=== PATIENT | female | born 1970 | race Caucasian/White ===

== ENCOUNTER 2017-03-03 11:27 | Outpatient (POV) | payer OTHER, SELFPAY | END 2017-03-03 15:20 | disposition home or self-care (01) | PROVIDERS: Family Provider Physician Assistant; PCP Physician Assistant; Visit Provider Podiatrist | DX: S93.401A Sprain of unspecified ligament of right ankle, initial encounter (principal) | CPT/HCPCS: 99203 ==

== ENCOUNTER 2017-06-19 13:23 | Emergency (ER) | payer OTHER, SELFPAY ==
[2017-06-19 13:42] VITALS: BP 136/96; PULSE 102; RESP 18; TEMP 36.5; O2SAT 100; BMI 31.8
--- NOTE | 2017-06-19 13:53 | XR_ITS ---
XR femur LT 2V COMPARISON: None HISTORY: .Dog bite posterior thigh TECHNIQUE: AP lateral and oblique views FINDINGS: The femoral head and neck appear intact. The femoral shaft is intact and the supracondylar femur appears normal. The soft tissues are normal with no foreign body seen. IMPRESSION: Negative left femur
--- NOTE | 2017-06-19 13:54 | HMH.EDUTC ---
[facility] [place] Disposition Clinical Impression: Dog bite of left thigh Qualifiers: Encounter type: initial encounter Qualified Code(s): S71.152A - Open bite, left thigh, initial encounter; W54.0XXA - Bitten by dog, initial encounter Disposition: Home, Self-Care Condition on Discharge: Good Instructions: DI for Dog Bite Additional Instructions: * Start antibiotic(s) immediately and be sure to take as ordered for the FULL length of time although you should start to see improvement over the next 24-48 hours. augmentin can cause GI side effects. Probiotics help prevent these symptoms. Once home, take a shower and allow water to run over wound. This only cleans it more then the irrigation we used here. Mild soap and water. DO NOT close or cover wound as this increases risk for infection. Monitor closely. Follow up immediately for new or worsening symptoms like signs of infection we discussed (swelling, redness, drainage, increasing pain) Wound follow up in 48 hours. Prescriptions: Amoxicillin/Potassium Clav [Augmentin 875-125 Tablet] 1 tab PO Q12H #14 tab Referrals: Daysi Michael PA [Primary Care Provider] - (Immediately to [facility] this weekend for new or worsening symptoms. Otherwise, return to [facility] on Thursday for wound care follow up.) Time of Disposition: 15:00 Medical Decision Making - Jesus Inquiry Pt receiving controlled substance: No Vital Signs: 06/19/17 13:42 06/19/17 15:21 Temperature 97.7 F 98.3 F Temperature Source Temporal Artery Scan Pulse Rate 83 Pulse Rate [Right Radial] 102 H Respiratory Rate 18 18 Blood Pressure 135/79 Blood Pressure [Right Arm] 136/96 Blood Pressure Mean [Right Arm] 109 02 Sat by Pulse Oximetry 100 Oxygen Delivery Method Room Air Room Air [facility] [place] HPI - General Stated complaint: AO [id number] dog bite left leg Time Seen by Provider: 06/19/17 13:45 Mode of Arrival: Family Vehicle Source of Information: Patient Limitations: No Limitations Description of Symptoms (Recalled from Triage Doc. by RN): PT STATES SHE WAS BITTEN BY A DOG THIS AFTERNOON ON HER LEFT POSTERIOR THIGH. HEENT Symptoms (Recalled from RN notes): No Resp Symptoms (Recalled from RN notes): No Skin Symptoms (Recalled from RN notes): Yes (DOG BITE ON LEFT POSTERIOR THIGH) MS Symptoms (Recalled from RN notes): No Functional Status (Recalled from RN notes): NA - History of Present Illness Provider Complaint: Here w/ a friend due to a dog bite. Reports she was bitten around 1-1.5 hours ago by a neighbor's large dog. Last tetanus 2 year ago. pain and bleeding left posterior thigh. Ambulating but painful. Hasn't taken or tried anything since occurred. - Related Data Home Medications Medication Instructions Recorded Confirmed aripiprazole 10 mg tablet 10 mg PO QDAY tab 04/15/17 atorvastatin 20 mg tablet 20 mg PO QDAY 04/15/17 buspirone 10 mg tablet 10 mg PO TID tab 04/15/17 diclofenac sodium 75 mg 75 mg PO BID 04/15/17 tablet,delayed release docusate sodium 100 mg capsule 100 mg PO QDAY 04/15/17 doxepin 75 mg capsule 75 mg PO QHS 04/15/17 fluticasone 50 mcg/actuation nasal 50 mcg INTRANASAL QDAY PRN 04/15/17 spray,suspension hydrochlorothiazide 12.5 mg capsule 12.5 mg PO QDAY 04/15/17 linaclotide 290 mcg capsule 290 mcg PO QDAY 04/15/17 loratadine 10 mg tablet 10 mg PO QDAY 04/15/17 mometasone-formoterol HFA 100 2 puff INHALATION BID 04/15/17 mcg-5 mcg/actuation aerosol inhaler mometasone-formoterol HFA 100 2 puff INHALATION BID 04/15/17 mcg-5 mcg/actuation aerosol inhaler montelukast 10 mg tablet 10 mg PO QHS 04/15/17 sucralfate 1 gram tablet 1 g PO BID tab 04/15/17 vortioxetine 20 mg tablet 20 mg PO QDAY 04/15/17 Previous Rx's Medication Instructions Recorded lansoprazole 30 mg capsule,delayed 30 mg PO QDAY 90 Days #90 cap 05/21/17 release hydralazine 10 mg tablet 10 mg PO BID #60 tab 05/25/17 propranolol ER 60 mg capsule,24 60 mg PO Q24H 90 Days #90 cap 06/15/17 hr
--- NOTE | 2017-06-19 14:22 | ED_ITS ---
[facility] [place] Disposition Clinical Impression: Dog bite of left thigh Qualifiers: Encounter type: initial encounter Qualified Code(s): S71.152A - Open bite, left thigh, initial encounter; W54.0XXA - Bitten by dog, initial encounter Disposition: Home, Self-Care Condition on Discharge: Good Instructions: DI for Dog Bite Additional Instructions: * Start antibiotic(s) immediately and be sure to take as ordered for the FULL length of time although you should start to see improvement over the next 24-48 hours. augmentin can cause GI side effects. Probiotics help prevent these symptoms. Once home, take a shower and allow water to run over wound. This only cleans it more then the irrigation we used here. Mild soap and water. DO NOT close or cover wound as this increases risk for infection. Monitor closely. Follow up immediately for new or worsening symptoms like signs of infection we discussed (swelling, redness, drainage, increasing pain) Wound follow up in 48 hours. Prescriptions: Amoxicillin/Potassium Clav [Augmentin 875-125 Tablet] 1 tab PO Q12H #14 tab Referrals: Daysi Michael PA [Primary Care Provider] - (Immediately to [facility] this weekend for new or worsening symptoms. Otherwise, return to [facility] on Thursday for wound care follow up.) Time of Disposition: 15:00 Medical Decision Making - Jesus Inquiry Pt receiving controlled substance: No Vital Signs: 06/19/17 13:42 06/19/17 15:21 Temperature 97.7 F 98.3 F Temperature Source Temporal Artery Scan Pulse Rate 83 Pulse Rate [Right Radial] 102 H Respiratory Rate 18 18 Blood Pressure 135/79 Blood Pressure [Right Arm] 136/96 Blood Pressure Mean [Right Arm] 109 02 Sat by Pulse Oximetry 100 Oxygen Delivery Method Room Air Room Air [facility] [place] HPI - General Stated complaint: AO [id number] dog bite left leg Time Seen by Provider: 06/19/17 13:45 Mode of Arrival: Family Vehicle Source of Information: Patient Limitations: No Limitations Description of Symptoms (Recalled from Triage Doc. by RN): PT STATES SHE WAS BITTEN BY A DOG THIS AFTERNOON ON HER LEFT POSTERIOR THIGH. HEENT Symptoms (Recalled from RN notes): No Resp Symptoms (Recalled from RN notes): No Skin Symptoms (Recalled from RN notes): Yes (DOG BITE ON LEFT POSTERIOR THIGH) MS Symptoms (Recalled from RN notes): No Functional Status (Recalled from RN notes): NA - History of Present Illness Provider Complaint: Here w/ a friend due to a dog bite. Reports she was bitten around 1-1.5 hours ago by a neighbor's large dog. Last tetanus 2 year ago. pain and bleeding left posterior thigh. Ambulating but painful. Hasn't taken or tried anything since occurred. - Related Data Home Medications Medication Instructions Recorded Confirmed aripiprazole 10 mg tablet 10 mg PO QDAY tab 04/15/17 atorvastatin 20 mg tablet 20 mg PO QDAY 04/15/17 buspirone 10 mg tablet 10 mg PO TID tab 04/15/17 diclofenac sodium 75 mg 75 mg PO BID 04/15/17 tablet,delayed release docusate sodium 100 mg capsule 100 mg PO QDAY 04/15/17 doxepin 75 mg capsule 75 mg PO QHS 04/15/17 fluticasone 50 mcg/actuation nasal 50 mcg INTRANASAL QDAY PRN 04/15/17 spray,suspension hydrochlorothiazide 12.5 mg capsule 12.5 mg PO QDAY 04/15/17 linaclotide 290 mcg capsule 290 mcg PO QDAY 04/15/17 loratadine 10 mg tablet 10 mg PO QDAY 04/15/17 mometasone-formoterol HFA 100 2 puff INHALATION BID 04/15/17
[2017-06-19 15:21] VITALS: BP 135/79; PULSE 83; RESP 18; TEMP 36.8; O2SAT 99
== END 2017-06-19 15:22 | disposition home or self-care (01) ==
PROVIDERS: Emergency Provider Nurse Practitioner Family; Family Provider Physician Assistant; PCP Physician Assistant
DX: S71.152A Open bite, left thigh, initial encounter (principal); W54.0XXA Bitten by dog, initial encounter; J44.9 Chronic obstructive pulmonary disease, unspecified; K21.9 Gastro-esophageal reflux disease without esophagitis; E78.5 Hyperlipidemia, unspecified; I10 Essential (primary) hypertension; F25.9 Schizoaffective disorder, unspecified; Z88.6 Allergy status to analgesic agent; Z79.899 Other long term (current) drug therapy
CPT/HCPCS: 73552; 99201

== ENCOUNTER → 2017-10-15 10:25 | Outpatient (CLI) | payer OTHER, SELFPAY ==
--- NOTE | 2017-10-15 10:39 | XR_ITS ---
XR wrist RT min 3V HISTORY ITS.REASON: GANGLION CYST, palpable nodule, soft tissue swelling, pain ORDERING PHYSICIAN: Gaurang Stevenson MD PATIENT AGE: 46 years Comparison: None FINDINGS: No fracture or dislocation. No lytic or blastic change. There is normal mineralization.. The joint spaces are well-preserved. No significant degenerative/arthritic changes. No erosive changes evident.. IMPRESSION: Negative wrist
== END ==
PROVIDERS: PCP Physician Assistant; Visit Provider Orthopaedic Surgery
DX: M67.40 Ganglion, unspecified site (principal)
CPT/HCPCS: 73110

== ENCOUNTER → 2017-10-19 13:50 | Outpatient (CLI) | payer OTHER, SELFPAY ==
--- NOTE | 2017-10-19 13:52 | XR_ITS ---
XR foot wt bearing LT 3V HISTORY: ITS.REASON: pain ORDERING PHYSICIAN: Norma Chapman DPM PATIENT AGE: 46 years COMPARISON: None FINDINGS: No fracture or dislocation. No lytic or blastic change. There is normal mineralization.. The joint spaces are well-preserved. No significant degenerative/arthritic changes. No erosive changes evident. The plantar arch is normal. There is no soft tissue swelling. IMPRESSION: Negative, no acute finding
--- NOTE | 2017-10-19 13:52 | XR_ITS ---
XR ankle wt bearing LT min 3V HISTORY: ITS.REASON: pain ORDERING PHYSICIAN: Norma Chapman DPM PATIENT AGE: 46 years Comparison: None FINDINGS: No fracture or dislocation. No lytic or blastic change. There is normal mineralization.. The joint spaces are well-preserved. No significant degenerative/arthritic changes. No erosive changes evident. The ankle mortise appears normal. There is no significant soft tissue swelling. IMPRESSION: Negative ankle, no acute finding
== END ==
PROVIDERS: Visit Provider Podiatrist
DX: M25.571 Pain in right ankle and joints of right foot (principal); M25.572 Pain in left ankle and joints of left foot
CPT/HCPCS: 73610; 73630

== ENCOUNTER → 2019-10-20 09:58 | Outpatient (CLI) | payer OTHER, SELFPAY ==
--- NOTE | 2019-10-20 10:04 | XR_ITS ---
PROCEDURE: XR ANKLE WT BEARING RT MIN 3V CLINICAL INDICATION: pain COMPARISON: ANKR3 ANKLE-RT-3 VIEWS from 12/20/2016 FINDINGS: There are postsurgical changes. There is a small obliquely oriented screw through the talar dome laterally. The proximal aspect of the screw appears to the extend just beyond the superior surface of the talar dome similar to the previous exam. A screw is present in the central aspect of the talus and also within the calcaneus as before. The joint spaces are well-preserved. No significant degenerative/arthritic changes. No erosive changes evident. Other findings:None. IMPRESSION: Postsurgical change. The screw within the superior aspect of the talus laterally is not quite flush with the cortex of the talar dome. No change with no acute finding. Dictated by: Cabrera Zeng MD 10/20/2019 13:37 Electronically signed by Cabrera Zeng MD in [place] 10/20/2019 13:37
--- NOTE | 2019-10-20 10:04 | XR_ITS ---
PROCEDURE: XR ANKLE WT BEARING LT MIN 3V CLINICAL INDICATION: pain Medial pain COMPARISON: ANKR3 ANKLE-RT-3 VIEWS from 12/20/2016 FINDINGS: No fracture or dislocation. No lytic or blastic change. There is normal mineralization. The joint spaces are well-preserved. No significant degenerative/arthritic changes. No erosive changes evident. Other findings:None. IMPRESSION: No acute findings. Dictated by: Cabrera Zeng MD 10/20/2019 13:20 Electronically signed by Cabrera Zeng MD in [place] 10/20/2019 13:20
== END ==
PROVIDERS: PCP Physician Assistant; Visit Provider Podiatrist
DX: M25.572 Pain in left ankle and joints of left foot (principal); S93.492A Sprain of other ligament of left ankle, initial encounter
CPT/HCPCS: 73610

== ENCOUNTER → 2019-11-17 10:36 | Outpatient (CLI) | payer OTHER, SELFPAY ==
--- NOTE | 2019-11-17 10:36 | MR_ITS ---
PROCEDURE: MR ANKLE LT WO/W CON CLINICAL INDICATION: Left ankle sprain, tear ATFL, deltoid, CF ligament PT twisted ankle [id number] ago. Entire ankle pain but worse on the medial side. Bruising on medial and lateral aspects. HX breast cancer. LT ankle instability. COMPARISON: CR XR ANKLE WT BEARING LT MIN 3V from 10/20/2019 TECHNIQUE: Routine multiplanar multi echo sequences are performed without gadolinium enhancement. FINDINGS: The tibiofibular ligaments, ATFL, PT FL, and deltoid ligaments appear intact. Posterior tibialis, flexor digitorum and flexor hallucis longus tendons and peroneal tendons are unremarkable. Achilles tendon has an unremarkable appearance. No abnormal bone marrow signal intensity evident. There is a small amount fluid in the ankle joint and at the posterior talar region.. There is also a small amount of soft tissue edema along the anterior lateral aspect of the ankle along the talus IMPRESSION: Small amount fluid along the posterior aspect of the talus and mild soft tissue edema along the anterior lateral talar region. The ATFL however does appear intact. Otherwise negative MRI the left ankle No evidence of ligament or tendinous tears Dictated by: Cabrera Zeng MD 11/19/2019 10:10 Cabrera Zeng MD in [place] 11/19/2019 10:10
== END ==
PROVIDERS: PCP Physician Assistant; Visit Provider Podiatrist
DX: S93.402A Sprain of unspecified ligament of left ankle, initial encounter (principal)
CPT/HCPCS: 73723; A9576

== ENCOUNTER 2020-02-17 15:00 | Outpatient (RCR) | payer OTHER, SELFPAY ==
--- NOTE | 2019-11-30 15:31 | HMH.PTOPEV ---
PT Outpatient Evaluation Rehab PT Outpatient Evaluation Start: 11/30/19 14:58 Freq: Status: Active Protocol: Document 11/30/19 15:12 CHRIS (Rec: 11/30/19 15:31 JESRUMA [id number]) Electronically Signed By Star Glasgow, PT 11/30/19 15:12 Outpatient Therapy Subjective History Subjective History Patient is a 49 year old female presenting to outpatient PT with reports of L foot/ankle pain S/P L ankle sprain approx 1.5 months ago. Pt reports that she was playing soccer and stepped in a hole resulting in injury. Most recent MRI indicates all ligament and tendons appear intact. Comorbidities include hx of breast cancer with mastectomy, HL, R ankle fracture with ORIF, cholecystectomy and appendectomy. Chief Complaint Pain,Stiff,Swelling Symptom Type Ache,Throb,Sharp,Shooting Symptoms Relieved By Rest/Positioning,Heat,OTC Meds Symptoms Aggravated By Standing,Physical Activity, Walking Prior Functional Limitations None Current Functional Limitations Housework,Standing,Squatting, Recreation Activity,Walking, Stairs,Balance Symptom Description Constant but Variable Level of pain today (0-10) 8 Pain scale - at its best (0-10) 2 Pain scale - at its worst (0-10) 9 Ankle/Foot Eval Gait Observation General Gait Pattern Observation Decrease Weight Bear (L) Palpation Tenderness left Ankle/Foot Palpation Findings Tenderness Ankle/Foot Palpation Overall Comment ATFL 3/4; deltoid ligaments 2/ 4 ROM Ankle/Foot Dorsiflexion w/Knee Extended -10 Active Range Motion (degrees) Ankle/Foot Dorsiflexion w/Knee Extended -5 Passive Range (degrees) Ankle/Foot Plantar Flexion Active Range 48 of Motion (degrees) Ankle/Foot Plantar Flexion Passive Range 58 of Motion (degrees) Ankle/Foot Eversion Active Range of 9 Motion (degrees) Ankle/Foot Eversion Passive Range of 15 Motion (degrees) Ankle/Foot Inversion Active Range of 22 Motion (degrees) Ankle/Foot Inversion Passive Range of 30 Motion (degrees) Ankle/Foot ROM Limitations Soft Tissue Tightness Great Toe ROM Reason Not Measured Within Functional Limits Accessory Movements Ankle Accessory Movements that Elicit Talus Dorsal [place],Talus
--- NOTE | 2020-01-11 16:14 | HMH.RHREAS ---
Rehab Reassessment Rehab OP Re-assessment Start: 01/11/20 16:08 Freq: Status: Active Protocol: Document 01/11/20 16:08 CHRIS (Rec: 01/11/20 16:14 CHRIS [id number]) Electronically Signed By Star Glasgow, PT 01/11/20 16:08 Rehab Re-assessment Subjective Subjective Patient reports 50% improvement since start of care. Objective Objective Notes AROM: DF 6; PF 58; INV 26; 16 MMT: PF/DF WNL; INV/EV 4+/5 SLS 3/10 sec TTP 3/4 ATFL Special tests negative Assessment Progress Assessment Progressing as Expected Assessment Notes Patient has been seen for 1 treatment visit since initial evaluation. Patient experienced another mild sprain which kept her from coming to PT. Patient reports compliance with HEP. No significat swelling to report. She has transitioned from boot to brace without any problems. She continues to have difficulty with all standing and ambulatory activities resulting in functional limitations with all household, recreational and work related tasks. Patient goals met STG 2 Goals Not Met STG 1, LTG's Revised Goals NA Plan Plan Continue with POC Frequency of Therapy 2x/week Duration of therapy 4 weeks Time and Billing Re-Eval Time 15 Re-Eval Billing Units 1 PHYSICIAN CERTIFICATION: I certify the specified therapy services for Tiana Boone are required, authorized, and reviewed every 30 days.
== END 2020-02-17 15:05 | disposition home or self-care (01) ==
LOC: PT 15:00
PROVIDERS: PCP Physician Assistant; Visit Provider Podiatrist
DX: S93.422A Sprain of deltoid ligament of left ankle, initial encounter (principal); M76.72 Peroneal tendinitis, left leg
CPT/HCPCS: 97010; 97014; 97110; 97163; 97164; G0283

== ENCOUNTER → 2020-02-17 15:01 | Outpatient (CLI) | payer OTHER, SELFPAY ==
--- NOTE | 2020-02-17 15:08 | XR_ITS ---
PROCEDURE: XR HAND LT MIN 3V CLINICAL INDICATION: Left hand pain COMPARISON: CR HANDR3 HAND-RT 3 VIEWS from 02/26/2016 CR HANDR3 HAND-RT 3 VIEWS from 02/28/2016 CR HANDR3 HAND-RT 3 VIEWS from 01/09/2017 FINDINGS: No fracture or dislocation. No lytic or blastic change. There is normal mineralization. The joint spaces are well-preserved. No significant degenerative/arthritic changes. No erosive changes evident. Other findings:None. IMPRESSION: No acute findings. Dictated by: Cabrera Zeng MD 02/17/2020 15:34 Cabrera Zeng MD in [place] 02/17/2020 15:34
--- NOTE | 2020-02-17 15:08 | XR_ITS ---
PROCEDURE: XR WRIST LT MIN 3V CLINICAL INDICATION: left wrist pain COMPARISON: CR WRISTCMRT XR wrist RT min 3V from 10/15/2017 FINDINGS: No fracture or dislocation. No lytic or blastic change. There is normal mineralization. The joint spaces are well-preserved. No significant degenerative/arthritic changes. No erosive changes evident. Other findings:None. IMPRESSION: No acute findings. Dictated by: Cabrera Zeng MD 02/17/2020 15:33 Cabrera Zeng MD in [place] 02/17/2020 15:33
== END ==
PROVIDERS: PCP Physician Assistant; Visit Provider Physician Assistant
DX: M79.642 Pain in left hand (principal); M25.532 Pain in left wrist
CPT/HCPCS: 73110; 73130

== ENCOUNTER → 2021-01-31 12:03 | Outpatient (CLI) | payer OTHER, SELFPAY ==
--- NOTE | 2021-01-31 12:07 | XR_ITS ---
PROCEDURE INFORMATION: Exam: XR Left Elbow Exam date and time: 01/31/2021 12:07 PM Age: 50 years old Clinical indication: Injury or trauma; Fall; Swelling (edema); Elbow; Left; Injury date: 01/27; Additional info: Fall 01/27 TECHNIQUE: Imaging protocol: XR Left elbow. Views: 3 or more views. COMPARISON: CR XR WRIST LT MIN 3V 02/17/2020 3:09 PM FINDINGS: Bones/joints: Normal. Soft tissues: Normal. IMPRESSION: No acute findings.
--- NOTE | 2021-01-31 12:07 | XR_ITS ---
PROCEDURE INFORMATION: Exam: XR Left Wrist Exam date and time: 01/31/2021 12:07 PM Age: 50 years old Clinical indication: Pain; Wrist; Left; Additional info: Fall 01/27 TECHNIQUE: Imaging protocol: XR Left wrist. Views: 3 or more views. COMPARISON: CR XR WRIST LT MIN 3V 02/17/2020 3:09 PM FINDINGS: Bones/joints: Normal. Soft tissues: Normal. IMPRESSION: No acute findings.
== END ==
PROVIDERS: PCP Physician Assistant; Visit Provider Physician Assistant
DX: M25.522 Pain in left elbow (principal); W19.XXXA Unspecified fall, initial encounter; M25.532 Pain in left wrist
CPT/HCPCS: 73080; 73110

== ENCOUNTER 2021-01-31 12:29 | Outpatient (RCR) | payer OTHER, SELFPAY | END 2021-01-31 13:47 | disposition home or self-care (01) | LOC: OT 12:29 | PROVIDERS: Visit Provider Physician Assistant | DX: M25.532 Pain in left wrist (principal); M25.522 Pain in left elbow; S59.902A Unspecified injury of left elbow, initial encounter | CPT/HCPCS: 97763 ==

== ENCOUNTER → 2021-06-13 13:30 | Outpatient (CLI) | payer OTHER, SELFPAY ==
[2021-06-13 17:41] LABS: Basophils # 0.1 K/mm3 (0-0.2); Basophils % 0.5 % (0.1-2.0); Eosinophils # 0.1 K/mm3 (0.0-0.4); Eosinophils % 0.8 % (0.1-12.0); Hematocrit 40.3 % (37.0-47.0); Hemoglobin 12.9 g/dL (12.2-16.2); Lymphocytes # 1.8 K/mm3 (0.7-4.5); Lymphocytes % 16.8 % (10-50); Mean Corpuscular Hemoglobin 29.4 pg (27.0-31.2); Mean Corpuscular Volume 91.8 fl (81-99); Mean Platelet Volume 8.1 fl (7.4-10.4); Monocytes # 0.4 K/mm3 (0.1-1.0); Monocytes % 3.8 % (1.7-9.3); Neutrophils # 8.4 K/mm3 (1.8-7.8); Neutrophils % 78.1 % (37.0-80.0); Platelet Count 324 K/mm3 (142-424); Red Blood Count 4.39 M/mm3 (4.20-5.40); White Blood Count 10.8 K/mm3 (4.8-10.8)
[2021-06-13 18:09] LABS: Chloride 105 mmol/L (98-107); Potassium 3.8 mmoL/L (3.5-5.1); Sodium 138 mmol/L (136-145)
[2021-06-13 18:11] LABS: Blood Urea Nitrogen 11 mg/dl (7-17); Estimated Glomerular Filt Rate 89 ml/min (>60); GFR (African American) 108 ML/MIN (>60)
[2021-06-13 18:12] LABS: Alanine Aminotransferase 39 U/L (12-78); Albumin Level 4.2 g/dl (3.5-5.0); Albumin/Globulin Ratio 1.6 (1.1-1.8); Alkaline Phosphatase 105 U/L (38-126); Anion Gap 12.8 mEq/L (5-15); Aspartate Amino Transferase 38 U/L (14-36); Bilirubin,Total 0.4 mg/dl (0.2-1.3); Calcium 8.4 mg/dl (8.4-10.2); Carbon Dioxide 24 mmol/L (22.0-30.0); Chol/HDL Ratio 4.1 (1-3.5); Cholesterol 203 mg/dl (140-200); Globulin 2.7 g/dL (1.3-3.2); Glucose 87 mg/dl (74-100); HDL Cholesterol 50 mg/dl (40-60); Iron 69 ug/dL (37-170); Magnesium 1.8 mg/dl (1.6-2.3); Total Protein,Serum 6.9 g/dl (6.3-8.2); Triglycerides 281 mg/dl (30-150); VLDL Cholesterol 56 mg/dL (0-40)
[2021-06-13 18:22] LABS: Total Iron Binding Capacity 399 ug/dL (265-497)
[2021-06-13 18:34] LABS: 25-OH Vitamin D, Total < 12.8 ng/mL (30-100)
[2021-06-13 18:50] LABS: T4 (Thyroxine) 9.4 ug/dl (5.53-11.0)
[2021-06-13 19:07] LABS: Ferritin 43.1 ng/ml (6.24-137)
[2021-06-13 19:47] LABS: Vitamin B12 273 pg/mL (239-931)
== END ==
PROVIDERS: Visit Provider Physician Assistant
DX: R51.9 Headache, unspecified (principal); R25.3 Fasciculation; Z20.822 Contact with and (suspected) exposure to COVID-19; J02.9 Acute pharyngitis, unspecified
CPT/HCPCS: 80053; 80061; 82306; 82607; 82728; 83540; 83550; 83735; 84436; 84443; 85025; C9803; U0003; U0005

== ENCOUNTER → 2021-11-19 13:08 | Outpatient (CLI) | payer OTHER, SELFPAY ==
--- NOTE | 2021-11-19 13:08 | MR_ITS ---
FINAL REPORT CLINICAL HISTORY: right shoulder pain x 1 month after throwing item and pt has had pain ever since and unable to raise arm up above head best images possible due to patient having right breast procedure years ago FINDINGS: Multiplanar MR imaging of the right shoulder was performed without contrast. Artifact obscures some of the detail secondary to postoperative changes in the right chest wall which decreases sensitivity. The tendons of the rotator cuff are intact without evidence of rotator cuff tear. There is mild AC joint arthrosis. No abnormal fluid is seen in the subacromial/subdeltoid bursa. The labrum is partially visualized and appears normal where seen. The visualized long head of the biceps tendon is normal. Small glenohumeral joint effusion is seen. There is no evidence of fracture or dislocation. The musculature is intact. There is no evidence of soft tissue mass. IMPRESSION: No evidence of rotator cuff or labral tear. Reviewed, Interpreted and Dictated by Tylor Alvarez III, MD Transcribed by Haley Bird Authenticated and [facility]
== END ==
PROVIDERS: PCP Physician Assistant; Visit Provider Physician Assistant
DX: M25.511 Pain in right shoulder (principal)
CPT/HCPCS: 73221

== ENCOUNTER → 2022-12-02 10:17 | Outpatient (CLI) | payer OTHER, SELFPAY ==
--- NOTE | 2022-12-02 10:25 | CT_ITS ---
FINAL REPORT TECHNIQUE: Axial images through the abdomen and pelvis were performed without contrast. This study was performed with techniques to keep radiation doses as low as reasonably achievable, (ALARA). Individualized dose reduction techniques using automated exposure control or adjustment of mA and/or kV according to the patient's size were employed. CLINICAL HISTORY: left groin pain, LLQ pain, s/p hysterectomy COMPARISON: None FINDINGS: Abdomen: The lung bases are clear. Note is made of bilateral subglandular breast implants. The liver parenchyma is homogeneous. The gallbladder has been surgically resected. The spleen, pancreas, adrenals are unremarkable. There is a tiny 3 mm left lower pole nonobstructing renal stone present. No evidence of hydronephrosis is seen. Pelvis: The urinary bladder is unremarkable. The appendix is not visualized. There is no pelvic mass or inflammation. The uterus has been surgically removed. IMPRESSION: Tiny 3 mm left lower pole nonobstructing renal stone. No acute intra-abdominal abnormality seen. Reviewed, Interpreted and Dictated by Daryl Flores MD Transcribed by Meeta Yepez Authenticated and [facility]
== END ==
PROVIDERS: PCP Physician Assistant; Visit Provider Physician Assistant
DX: R10.32 Left lower quadrant pain (principal); Z85.3 Personal history of malignant neoplasm of breast
CPT/HCPCS: 74176

== ENCOUNTER 2024-03-04 13:12 | Outpatient (CLI) | payer OTHER, SELFPAY ==
--- OUTSIDE RECORDS SUMMARY | 2024-03-04 13:14 | XMS_ITS | Encounter Summary ---
Author Organization 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 Name Role Phone Unavailable Primary Care Provider Unavailabl e Encounter Details Date Type Department Care Team (Late st Contact Info) Description 08/07/2014 [facility] Vitals Encounter [facility] OUTPATIENT CONVERSIONS [address] [place] [address] Provider, MD Santana [address] [place] [id number] Social History Tobacco Use Types Packs/Day Years Used Date Smoking Tobacco: Never Assessed Comments Unknown Sex and Gender Information Value Date Recorded Sex Assigned at Not on file Legal Sex Female 7:58 PM EDT Gender Identity Not on file Sexual Orientation Not on file documented as of this encounter Last Filed Vital Signs Vital Sign Reading Time Taken Comments Blood Pressure - - Pulse - - Temperature - - Respiratory Rate - - Oxygen Saturation - - Inhaled Oxygen Concentration - - Weight 60.8 kg (133 lb 15.9 oz) 08/07/2014 2:53 PM EDT Height - - Body Mass Index 20.37 05/08/2014 9:34 AM EST documented in this encounter Plan of Treatment Not on file documented as of this encounter Visit Diagnoses Not on filedocumented in this encounter
--- OUTSIDE RECORDS SUMMARY | 2024-03-04 13:14 | XMS_ITS | Encounter Summary ---
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 Name Role Phone Daysi Michael Primary Care Provider [phone] Encounter Details Date Type Department Care Team (Latest Contact Info) Description 08/05/2021 Travel Social History Tobacco Use Types Packs/Day Years Used Date Smoking Tobacco: Former Smokeless Tobacco: Never Alcohol Use Standard Drinks/Week Comments No 0 (1 standard drink = 0.6 oz pur e alcohol) Comments Unknown Sex and Gender Information Value Date Recorded Sex Assigned at Not on file Legal Sex Female 7:58 PM EDT Gender Identity Not on file Sexual Orientation Not on file COVID-19 Exposure Response Date Recorded In the last 10 days, have yo u been in contact with someone who was confirmed or suspected to have Coronavirus/COVID-19? No / Unsure 08/05/2021 1:38 PM EDT documented as of this encounter Plan of Treatment Not on file documented as of this encounter Visit Diagnoses Not on filedocumented in this encounter Additional Health Concerns Assessment Noted Time A fall risk assessment has been complete d for the patient 08/05/2021 2:01 PM EDT documented as of this encounter Care Teams Grocery Caddy Relationship Specialty Start Date End Date Daysi Michael PA [address] [place] [address] PCP - General 08/17/20 documented as of this encounter
--- OUTSIDE RECORDS SUMMARY | 2024-03-04 13:14 | XMS_ITS | Clinical Summary ---
Author Organization [facility] Address [address] [place] [address] Care Team Providers Care Dental Instructor Name Role Phone Daysi Michael Primary Care Provider [phone] Allergies Active Allergy Reactions Criticality Noted Date Comments Prednisone Arrhythmia Medium 07/26/2018 Medications amoxicillin-clavu lanate (AUGMENTIN) 875-125 MG per tabletIndications :Acute recurrent pansinusitis Take 1 tablet by mouth 2 (Two) Times a Day. 20 tablet 07/26/2018 Active Active Problems No known active problems Social History Tobacco Use Types Packs/Day Years Used Date Smoking Tobacco: Every Day Abuse Screen Answer Date Recorded Unsafe at Home or Work/School Not on file Feels Threatened by Someone? Not on file 12/2022 Does Anyone Keep You from Co ntacting Others or Doint Things Outside the Home? Not on file 01/12/2023 Physical Sign of Abuse Present Not on file 1 Housing Stability Answer Date Recorded Current Living Arrangements Not on file 12/2022 Potentially Unsafe Housing Conditions Not on shay e 01/12/2023 Family and Community Support Answer Marin e Recorded Help with Day-to-Day Activities Not on file 01/12/2023 Lonely or Isolated Not on file 01/12/2023 Employment Answer Date Recorded Do you want help finding or keeping work or a mario b? Not on file 01/12/2023 Disabilities Answer Date Recorded Concentrating, Remembering, or Making Decisions Difficulty Not on file 01/12/2023 Doing Errands Independently Difficulty Not on fi le 01/12/2023 Education Answer Date Recorded Help with school or training? Not on file Preferred Language Not on file 01/12/2023 Comments No Sex and Gender Information Value Date Recorded Sex Assigned at Not on file Legal Sex Female 10:46 AM EDT Gender Identity Not on file Sexual Orientation Not on file Last Filed Vital Signs Vital Sign Reading Time Taken Comments Blood Pressure 140/92 07/26/2018 3:55 PM EDT Pulse 72 07/26/2018 3:55 PM EDT Temperature 37.2 ??C (98.9 ??F) 07/26/2018 3:55 PM ED T Respiratory Rate 16 07/26/2018 3:55 PM EDT Oxygen Saturation 98% 07/26/2018 3:55 PM EDT Inhaled Oxygen Concentration - - Weight 88.5 kg (195 lb) 07/26/2018 3:55 PM EDT Height 172.7 cm (5' 8 ) 07/26/2018 3:55 PM EDT Body Mass Index 29.65 07/26/2018 3:55 PM EDT Plan of Treatment Health Maintenance Due Date Last Done Comments Annual Gynecologic Pelvic and Breast Exam 1970 COLOGUARD 1972 COLON CANCER SCREENING 5 YEAR SIGMOIDOSCOPY 1972 COLONOSCOPY [address]ER SCREENING 1972 CT COLONOGRAPHY 1972 FECAL OCCULT BLOOD TEST 1972 FIT Testing (1 year) 1972 LIPID PANEL 1972 Pneumococcal Vaccine 0-64 (1 of 2 - PCV) 1978 TDAP/TD VACCINES (1 - Tdap) 11/17/1991 MAMMOGRAM 2012 ANNUAL PHYSICAL 07/26/2018 HEPATITIS C SCREENING 07/26/2018 PAP SMEAR 07/26/2018 ZOSTER VACCINE (1 of 2) 2022 INFLUENZA VACCINE 10/05/2023 COVID-19 Vaccine (1 - 2023- season) 2023 Insurance [facility] Care Teams Dental Instructor Relationship Specialty Start Date End Date Daysi Michael PA PCP - General Physician Logging Assistant 07/26/18
--- OUTSIDE RECORDS SUMMARY | 2024-03-04 13:14 | XMS_ITS | Encounter Summary ---
Author Organization [facility] Address [address] [place] [address] Care Team Providers Care Senior Health Educator Name Role Phone Unavailable Primary Care Provider Unavailabl e Encounter Details Date Type Department Care Team (Late st Contact Info) Description 08/06/2016 Legacy AEHR Vitals Encounter [facility] OUTPATIENT CONVERSIONS [address] [place] [address] Provider, MD Santana [address] [place] [address] Social History Tobacco Use Types Packs/Day [...] - Inhaled Oxygen Concentration - - Weight 78 kg (172 lb 0.1 oz) 08/06/2016 3:47 PM EDT Height 172.7 cm (5' 8 ) 08/06/2016 3:47 PM EDT Body Mass Index 26.15 08/06/2016 3:47 PM EDT documented in this encounter Plan of Treatment Not on file documented as of this encounter Visit Diagnoses Not on filedocumented in this encounter
--- OUTSIDE RECORDS SUMMARY | 2024-03-04 13:14 | XMS_ITS | Encounter Summary ---
Author Organization [facility] Address [address] [id number] Care Team Providers Care Manager Manufacturing Name Role Phone Daysi Michael Primary Care Provider [phone] Encounter Details Date Type Department Care Team (Latest Contact Info) Description 09/16/2021 Travel Social History Tobacco Use Types Packs/Day [...] suspected to have Coronavirus/COVID-19? No / Unsure 09/16/2021 2:11 PM EDT documented as of this encounter Plan of Treatment Not on file documented as of this encounter Visit Diagnoses Not on filedocumented in this encounter Additional Health Concerns Assessment Noted Time A fall risk assessment has been complete d for the patient 09/16/2021 2:25 PM EDT documented as of this encounter Care Teams Manager Manufacturing Relationship Specialty Start Date End Date Daysi Michael PA [address] [place] [address] PCP - General 08/17/20 documented as of this encounter
--- OUTSIDE RECORDS SUMMARY | 2024-03-04 13:14 | XMS_ITS | Encounter Summary ---
Author Organization [facility] Address [address] [place] [address] Care Team Providers Care Cancer Registry Manager Name Role Phone Unavailable Primary Care Provider Unavailabl e Encounter Details Date Type Department Care Team (Late st Contact Info) Description 10/09/2014 Legacy AEHR Vitals Encounter [facility] OUTPATIENT CONVERSIONS [address] [place] [address] Provider, MD Santana [address] [place] [address] Social History Tobacco Use Types Packs/Day [...] - Inhaled Oxygen Concentration - - Weight 59.9 kg (132 lb 0.2 oz) 10/09/2014 3:51 P M EDT Height 172.7 cm (5' 8 ) 10/09/2014 3:51 PM EDT Body Mass Index 20.07 10/09/2014 3:51 PM EDT documented in this encounter Plan of Treatment Not on file documented as of this encounter Visit Diagnoses Not on filedocumented in this encounter
--- OUTSIDE RECORDS SUMMARY | 2024-03-04 13:14 | XMS_ITS | Encounter Summary ---
Author Organization [facility] Address [address] [place] [address] Care Team Providers Care Commercial Relationship Manager Name Role Phone Daysi Michael Primary Care Provider [phone] Reason for Visit * Reason Onset Date Comments HCN - Patient Message 09/25/2021 Encounter Details Date Type Department Care Team (Late st Contact Info) Description 09/25/2021 [facility]phone [facility] [address] [place] [id number] Emily Cintron, DECORATOR STORE [address] [facility] [place] [address] HCN - Patient Message Social History Tobacco Use Types Packs/Day Years [...] PM EDT documented as of this encounter Miscellaneous Notes * Telephone Encounter - Porsche Coles - 09/30/2021 8:46 AM EDT Pending Auth * Telephone Encounter - Erich Bird Anselmo - 09/26/2021 3:18 PM EDT Please take care of this * Telephone Encounter - Padmini Douglas - 09/25/2021 4:00 PM EDT Patient Phone Message Reason for Call: Patient is calling to state she would like MRI completed at [facility] Please include demographic, office notes to support MRI Best contact number and optimal time of day to reach caller: [phone] Note: Please do not reply to this message. Follow-up communication and further actions as a result of this message need to be communicated with the patient directly, if the patient is not active onMyChart. If the patient is active on MyChart, they will receive notification of the communication/outcome via Swapsee. documented in this encounter Plan of Treatment Not on file documented as of this encounter Visit Diagnoses Not on filedocumented in this encounter Additional Health Concerns Assessment Noted Time A fall risk assessment has been complete d for the patient 09/16/2021 2:25 PM EDT documented as of this encounter Care Teams Commercial Relationship Manager Relationship Specialty Start Date End Date Daysi Michael PA [address] [place] [address] PCP - General 08/17/20 documented as of this encounter
--- OUTSIDE RECORDS SUMMARY | 2024-03-04 13:14 | XMS_ITS | Encounter Summary ---
Author Organization [facility] Address [address] [place] [address] Care Team Providers Care Condemnation Engineer Name Role Phone Unavailable Primary Care Provider Unavailabl e Encounter Details Date Type Department Care Team (Late st Contact Info) Description 06/11/2015 Legacy AEHR Vitals Encounter [facility] OUTPATIENT CONVERSIONS [address] [place] [address] Provider, MD Santana [address] [place] [address] Social History Tobacco Use Types Packs/Day [...] - Inhaled Oxygen Concentration - - Weight 62.9 kg (138 lb 10.7 oz) 06/11/2015 2:08 PM EST Height 172.7 cm (5' 8 ) 06/11/2015 2:08 PM EST Body Mass Index 21.08 06/11/2015 2:08 PM EST documented in this encounter Plan of Treatment Not on file documented as of this encounter Visit Diagnoses Not on filedocumented in this encounter
--- OUTSIDE RECORDS SUMMARY | 2024-03-04 13:14 | XMS_ITS | Clinical Summary ---
Author Organization [facility] Address [address] [place] [address] Care Team Providers Care Protective Services Officer Name Role Phone AlecDaysi Elen HOOPER Primary Care Provider [phone] Allergies Active Allergy Reactions Criticality Noted Date Comments Ibuprofen Nausea 07/02/2011 Oxycodone-Acetaminophen Unknown - Patien t states they do not know rxn details Low 08/05/2021 Prednisone Other - please docum ent in the comment field Medium 07/26/2018 Medications ergocalciferol 1.25 MG (27914 UT) capsule Take 1 capsule by mouth 1 (one) time per week. 2 Active D3 High Potency 25 MCG (1000 UT) capsule Take 1,000 Units by mouth 1 (one) time each day. 2 Active benztropine (Cogentin) 0.5 MG tablet Take 1 tablet once a day as needed for restlessness 2 Active ARIPiprazole (Abilify) 5 MG tablet Take 5 mg by mouth 1 (one) time each day. 2 Active atorvastatin (Lipitor) 40 MG tablet Take 40 mg by mouth 1 (one) time each day. 2 Active Melatonin 5 MG tablet tablet Take by mouth. A ctive citalopram (CeleXA) 10 MG tablet Take 10 mg by mouth 1 (one) time each day. 2 Active Family History Medical History Relation Name Comments Colon cancer Maternal Grandmother FH: col on cancer Breast cancer Mother FH: breast can cer Breast cancer Other FH: breast can cer Relation Name Status Comments Maternal Grandmother Mother Other Social History Tobacco Use Types Packs/Day Years [...] Sign Reading Time Taken Comments Blood Pressure 115/72 09/16/2021 2:23 PM EDT Pulse 103 09/16/2021 2:23 PM EDT Temperature 37 ??C (98.6 ??F) 09/16/2021 2:23 PM EDT Respiratory Rate - - Oxygen Saturation 97% 09/16/2021 2:23 PM EDT Inhaled Oxygen Concentration - - Weight 84.4 kg (186 lb) 09/16/2021 2:23 PM EDT Height 172.7 cm (5' 8 ) 09/16/2021 2:23 PM EDT Body Mass Index 28.28 09/16/2021 2:23 PM EDT Plan of Treatment Health Maintenance Due Date Last Done Comments [facility]-Depression Screening 1972 [facility]-HIV Screening 1972 [facility]-Hepatitis C Screening 1972 [facility]-Infant/Child/Adol SDOH Screenings 1972 [facility]-Obesity Intervention 1978 [facility]- SDOH Screenings 1990 [facility]-Adult SDOH Screenings 1990 [facility]-DTaP,Tdap,and Td Vaccine s (1 - Tdap) 11/17/1991 [facility]-Hepatitis B Vaccines (1 of 3 - 19+ 3-dose series) 11/17/1991 [facility]-Cervical Cancer Screening 06/28/2017 [facility]-HPV/Cotest 06/28/2017 06/28/2014 [facility]-Pap Smear 06/28/2017 06/28/2014 CT Colonography 2017 Colonoscopy 2017 FIT-DNA 2017 FIT 2017 FOBT 2017 Sigmoidoscopy 2017 [facility]-Colorectal Cancer Screening 2017 [facility]-Breast Cancer Screening 2022 03/16/2014 [facility]-Zoster Vaccines (1 of 2) 2022 [id number] Vaccine (2023- season) 2023 [facility]-Influenza Vaccine (#1) 12/06/202302/10, 02/09/2007 [facility]-RSV Vaccine: 60+ Years o r (1 - 1-dose 75+ series) 11/17/2047 [facility]-HIB Vaccines Aged Out No longer e ligible based on patient's age to complete this topic [facility]-HPV Vaccines Aged Out No longer e ligible based on patient's age to complete this topic [facility]-Hepatitis A Vaccines Aged Out No longer eligible based on patient's age to complete this topic [facility]-IPV Vaccines Aged Out No longer e ligible based on patient's age to complete this topic [facility]-Pneumococcal Vaccine: Pediatrics (0 to 5 Years) and At-Risk Patients (6 to 64 Years) Aged Out No longer eligible b ased on patient's age to complete this topic [facility]-Rotavirus Vaccines Aged Out No lo nger eligible based on patient's age to complete this topic Procedures Procedure Name Priority Date/Time Associated Diagnosis Comments CYTO DATA CONVERSION Routine 06/28/2014 12:00 AM EDT MAMMOGRAPHY BREAST DIAGNOSTIC TOMOSYNTHESIS BILATERAL Routine 03/16/2014 8:48 AM EST from Last 3 Months or Most Recently Relevant to Health Maintenance Results * Cytology (06/28/2014 12:00 AM EDT) 06/28/2014 06/28/2014 3:5 8 PM EDT Narrative SUNQUEST - 06/30/2014 2:00 PM EDT [facility] ?MR #: [id number] [facility] ?[place], [place] ??[id number] ?1970 (Age: 43) ?? FW ?Collect Date: 06/28/2014 00:00 ?Receipt Date: 06/28/2014 15:58 ?Page 1 DEPARTMENT OF PATHOLOGY AND ??LABORATORY MEDICINE CYTOPATHOLOGY REPORT ? Email: [email or web address] ?[email or web address] ? ATTENDING MD/Practitioner: ??Christopher Iniguez MD ? Service: SGO ? Location: [facility] ? Reported: 06/30/2014 14:00 ? Collected: 06/28/2014 00:00 DIAGNOSIS A. ??PELVIC WASHING: (CONCENTRATE AND CELL BLOCK) ? NO EVIDENCE OF MALIGNANCY. ? Electronically Signed Out ? JEANINE Dodge([facility]) Ann Shelley M.D. PROCEDURES/ADDENDA GROSS DESCRIPTION: 22 mls bloody fluid CLINICAL INFORMATION: CLINICAL DIAGNOSIS Bilateral breast cancer SPECIMEN DESCRIPTION: A: ??PELVIC WASHING ? THIN PREP PROCESS CELLULAR ENHANCEMENT, CELL BLOCK F ICD: 789.30 ? ABDOMINAL OR PELVIC SWELLING, MASS, OR LUMP, UNSPECIFIED SITE 174.9 ? MALIGNANT NEOPLASM BREAST NOS (FEMALE) F: A; 79494, 31749, 35551 SNOMED CODES: A; K8H227 [id number] A resident has participated in this service. ??A pathologist has performed and is responsible for the reported pathologic evaluation. us Anjelica Iniguez MD LAB PATHOLOGY ORDERABLES Hannah nunes Result SUNQUEST * Mammography Breast Diagnostic Tomosynthesis Bilateral (03/16/2014 8:48 AM EST) Anatomical Region Laterality Modality Breast Bilateral Mammography Impressions 03/16/2014 12:17 PM EST BI-RADS Assessment Category 4A: Suspicious abnormality. RECOMMENDATION: Finding 1: ??Stereotactic core needle biopsy is recommended in the right breast. Finding 2: ??Stereotactic core needle biopsy is recommended in the middle third lower inner quadrant of the left breast located 7 centimeters from the nipple. Page 1 of 2 Patient Name:Michael Disla : 1970 ? Age: 43 ? Gender: femaleDate of Service: ??03/16/2014 Referring Phy:Karly Alegria: ??[phone] COMMUNICATION: The results and recommendations were discussed with the patient and a printed lay language version of the imaging report was given to the patient at the time of the visit. The mammogram was read with the assistance of CAD. Read By: Nicolasa Colon M.D. Signed By: Nicolasa Colon M.D. on ??at ??/ ??/ ? : ??: ?? AM Page 2 of 2 Read By: NICOLASA COLON M.D. Signed By: NICOLASA COLON M.D. on 03/16/2014 at 12:17:31 Narrative 03/16/2014 12:17 PM EST Patient Name:Michael Disla : 1970 ? Age: 43 ? Gender: femaleDate of Service: ??03/16/2014 Referring Phy:Karly Alegria: ??[phone] FINAL REPORT PROCEDURE: Diagnostic Tomosynthesis - bilateral , Diagnostic Mammogram with CAD - bilateral , Additional mammographic views - bilateral ??and Additional mammographic views - left breast HISTORY: Patient is 43 years old and is seen for second opinion. ? The patient has the following family history of breast cancer: ??mother, at age 35, breast cancer, specified type unknown; maternal aunt, breast cancer, specified type unknown and maternal aunt, breast cancer, specified type unknown. COMPARISON: The present examination has been compared to prior imaging studies performed at an outside location on 02/03/2014 and 02/13/2014. MAMMOGRAM TECHNIQUE: The following mammographic views were obtained: bilateral craniocaudal; bilateral mediolateral oblique; and bilateral tomosynthesis images were obtained. ??Computer assisted detection was used in the interpretation of this study. MAMMOGRAM FINDINGS: The breast tissue is heterogeneously dense, which could obscure detection of small masses. Finding 1: ??There are multiple amorphous and round calcifications with grouped distribution in the right breast. Recommend biopsy of a 3 mm group in the lower outer quadrant, 9 cm from the nipple. Finding 2: ??There are amorphous and round calcifications measuring 30 mm with segmental distribution in the middle third lower inner quadrant of the left breast located 7 centimeters from the nipple. Additional multiple grouped round and amorphous calcifications are present throughout the left breast, predominantly medially. There are no suspicious masses or areas of architectural distortion in either breast. No additional findings on tomosynthesis. Procedure Note Nicolasa Colon MD - 08/12/2020 Patient Name:Michael Disla : 1970 Age: 43 Gender: femaleDate of Service:03/16/2014 Referring Phy:Karly Michaelscandyount: [phone] FINAL REPORT PROCEDURE: Diagnostic Tomosynthesis - bilateral , Diagnostic Mammogram with CAD -bilateral , Additional mammographic views - bilateral and Additional mammographic views - left breast HISTORY: Patient is 43 years old and is seen for second opinion. The patienthas the following family history of breast cancer: mother, at age 35, breastcancer, specified type unknown; maternal aunt, breast cancer, specified type unknown and maternal aunt, breast cancer, specifiedtype unknown. COMPARISON: The present examination has been compared to prior imaging studiesperformed at an outside location on 02/03/2014 and 02/13/2014. MAMMOGRAM TECHNIQUE: The following mammographic views were obtained: bilateral craniocaudal;bilateral mediolateral oblique; and bilateral tomosynthesis images were obtained. Computer assisted detection was usedin the interpretation of this study. MAMMOGRAM FINDINGS: The breast tissue is heterogeneously dense, which could obscure detectionof small masses. Finding 1: There are multiple amorphous and round calcifications withgrouped distribution in the right breast. Recommend biopsy of a 3 mm group in the lower outer quadrant, 9 cm from thenipple. Finding 2: There are amorphous and round calcifications measuring 30 mmwith segmental distribution in the middle third lower inner quadrant of the left breast located 7 centimeters from thenipple. Additional multiple grouped round and amorphous calcifications are present throughout the left breast,predominantly medially. There are no suspicious masses or areas of architectural distortion ineither breast. No additional findings on tomosynthesis. IMPRESSION: BI-RADS Assessment Category 4A: Suspicious abnormality. RECOMMENDATION: Finding 1: Stereotactic core needle biopsy is recommended in the rightbreast. Finding 2: Stereotactic core needle biopsy is recommended in the middlethird lower inner quadrant of the left breast located 7 centimeters from the nipple. Page 1 of 2 Patient Name:Michael Disla : 1970 Age: 43 Gender: femaleDate of Service:03/16/2014 Referring Phy:Karly Michaelsccount: [phone] COMMUNICATION: The results and recommendations were discussed with the patient and aprinted lay language version of the imaging report was given to the patient at the time of the visit. The mammogram was readwith the assistance of CAD. Read By: Nicolasa Colon M.D. Signed By: Nicolasa Colon M.D. on at / / : : AM Page 2 of 2 Read By: NICOLASA COLON M.D. Signed By: NICOLASA COLON M.D. on 03/16/2014 at 12:17:31 us Historical Provider IMHong BI PROCEDURES Final R esult from Last 3 Months or Most Recently Relevant to Health Maintenance Insurance [employer] [facility] MEDICAID Care Teams Protective Services Officer Relationship Specialty Start Date End Date Daysi Michael PA [address] [place] [address] [facility] - General 08/17/20
--- OUTSIDE RECORDS SUMMARY | 2024-03-04 13:14 | XMS_ITS | Encounter Summary ---
Author Organization [facility] Address [address] [place] [address] Care Team Providers Care Paediatric Thoracic Physician Name Role Phone Daysi Michael Primary Care Provider [phone] Reason for Visit * Reason Comments Follow-up Encounter Details Date Type Department Care Team (Late st Contact Info) Description 09/16/2021 1:50 PM EDT [facility] Visit [facility] [address], [address] [place] [address] Emily Cintron, WATER QUALITY ASSISTANT [address] [facility] [place] [address] Left ankle pain, unspecified chronicity (Primary Dx); Instability of left ankle joint Social History Tobacco Use Types Packs/Day Years [...] PM EDT documented as of this encounter Last Filed [...] Mass Index 28.28 09/16/2021 2:23 PM EDT documented in this encounter Miscellaneous Notes * Clinician Note - Emi Riley - 09/16/2021 1:50 PM EDT ankle went out while walking and when walking without the boot feels like ankle is going outward * Progress Notes - Emily Cintron APRN - 09/16/2021 1:50 PM EDT Chief complaint: left ankle pain History of present illness: Tiana Boone 50 y.o. female presents to clinic for follow up of her left lateral ankle pain and instability. She states that she has a history of multiple ankle sprains. She had a Brostrom procedure on the right. Six weeks ago her left ankle gave out on her and she fell. She now has lateral ankle pain and swelling. She was placed in a boot at her last visit but she states any time she tries to put weight on the ankle, it gives out on her, even in the boot. She is having to use crutches for assistance. She states she has a history of anxiety and depression, but is otherwise healthy. She smokes 1/2 ppd. I have reviewed the patient's past medical history, surgical history, social history, and family history. This is located in the patient's note and/or in their intake form that has been scanned into their medical record at today's visit. The 14 point review of systems was obtained and included: Eyes, ENT, cardiovascular, respiratory, gastrointestinal, bladder/kidneys, musculoskeletal system, neurological system, allergies and immune system, hormone/endocrine system, skin, and psychiatric and is negative with the exception of those m entioned in the history of present illness. Physical Exam: Constitutional: Well-developed, well-nourished Psychological: Appropriate mood and affect HENT: Normal Eyes: EOMI Cardiac: Well perfused, extremities pink Respiratory: nonlabored respirations on room air, symmetric chest rise and fall. Abdomen: Nontender, nondistended Neurologic: Alert and oriented to person, place, and time Musculoskeletal: left ankle Appearance: moderate swelling over the lateral ankle, extreme tenderness to palpation ROM: able to minimally range the toes, hindfoot and ankle joint, limited due to pain, unable to perform talar tilt or anterior drawer secondary to pain Motor: + EHL, FHL, TA, GSC Sensation: SILT in deep peroneal, superficial peroneal, tibial, saphenous, and sural nerve distributions Vascular: 2+ DP and PT pulses, Cap refill <2 Imaging: personally reviewed by myself which show no acute bony abnormalities Assessment/plan: Tiana Boone 50 y.o. female with left lateral ankle pain and instability. I will switch her to an ankle brace today to see if will provide her with more ankle stability. I will haveher continue to use the crutches for stability. I am going to order an MRI of the ankle due to her being immobilized for 6 weeks and unable to bear weight. She is unable to perform physical therapy because she can put weight down without crutches. documented in this encounter Plan of Treatment Not on file documented as of this encounter Visit Diagnoses Diagnosis Left ankle pain, unspecified chronicity- Primary Instability of left ankle joint documented in this encounter Additional Health Concerns Assessment Noted Time A fall risk assessment has been complete d for the patient 09/16/2021 2:25 PM EDT documented as of this encounter Care Teams Paediatric Thoracic Physician Relationship Specialty Start Date End Date Daysi Michael PA [address] [place] [address] PCP - General 08/17/20 documented as of this encounter
--- OUTSIDE RECORDS SUMMARY | 2024-03-04 13:14 | XMS_ITS | Encounter Summary ---
Author Organization [facility] Address [address] [place] [address] Care Team Providers Care Concrete Vault Maker Name Role Phone Unavailable Primary Care Provider Unavailabl e Encounter Details Date Type Department Care Team (Late st Contact Info) Description 09/24/2015 [facility] AEHR Vitals Encounter [facility] OUTPATIENT CONVERSIONS [address] [place] [address] Provider, MD Santana [address] [place] [address] Social History Tobacco Use Types Packs/Day [...] - Inhaled Oxygen Concentration - - Weight 66.2 kg (145 lb 15.1 oz) 09/24/2015 3:47 PM EDT Height 172.7 cm (5' 8 ) 09/24/2015 3:47 PM EDT Body Mass Index 22.19 09/24/2015 3:47 PM EDT documented in this encounter Plan of Treatment Not on file documented as of this encounter Visit Diagnoses Not on filedocumented in this encounter
--- OUTSIDE RECORDS SUMMARY | 2024-03-04 13:14 | XMS_ITS | Encounter Summary ---
Author Organization [facility] Address [address] [place] [address] Care Team Providers Care Route Sales Specialist Name Role Phone Daysi Michael Primary Care Provider [phone] Reason for Visit * Reason Comments Sinus Problem Encounter Details Date Type Department Care Team (Late st Contact Info) Description 07/26/2018 4:00 PM EDT Office Visit [facility] [address] [place] [address] Acute recurrent pansinusitis (Primary Dx) Social History Tobacco Use Types Packs/Day Years Used Date Smoking Tobacco: Every Day Comments No Sex and Gender Information Value [...] Mass Index 29.65 07/26/2018 3:55 PM EDT documented in this encounter Progress Notes * Trent Diaz APRN - 07/26/2018 4:00 PM EDT Subjective Tianamanny Boone is a 47 y.o. female. Sinus Problem This is a recurrent problem. Episode onset: 2 weeks. The problem has been gradually worsening sinceonset. There has been no fever. The pain is moderate. Associated symptoms include congestion, ear pain, headaches, sinus pressure and swollen glands. Pertinent negatives include no chills, coughing, hoarse voice, neck pain, shortness of breath, sneezing or sore throat. Treatments tried: allergy medications. The treatment provided no relief. The following portions of the patient's history were reviewed and updated as appropriate: allergies, current medications, past medical history, past social history, past surgical history and problem list. Review of Systems Constitutional: Negative for appetite change, chills and fever. HENT: Positive for congestion, ear pain, postnasal drip, rhinorrhea, sinus pressure and sinus pain.Negative for hoarse voice, sneezing, sore throat and trouble swallowing. Eyes: Negative. Respiratory: Negative for cough, shortness of breath and wheezing. Cardiovascular: Negative. Gastrointestinal: Negative for abdominal pain, diarrhea, nausea and vomiting. Musculoskeletal: Negative. Negative for neck pain. Skin: Negative. Neurological: Positive for headaches. Negative for dizziness. Hematological: Positive for adenopathy. BP 140/92 Pulse 72 Temp 98.9 ??F (37.2 ??C) Resp 16 Ht 172.7 cm (68 ) Wt 88.5 kg (195 lb) SpO2 98% BMI 29.65 kg/m?? Objective Physical Exam Constitutional: She is oriented to person, place, and time. Vital signs are normal. She appears well-developed and well-nourished. HENT: Head: Normocephalic. Right Ear: External ear and ear canal normal. No drainage, swelling or tenderness. Tympanic membrane is bulging. Tympanic membrane is not erythematous. Left Ear: External ear and ear canal normal. No drainage, swelling or tenderness. Tympanic membraneis bulging. Tympanic membrane is not erythematous. Nose: Mucosal edema and rhinorrhea (yellowish) present. Right sinus exhibits maxillary sinus tenderness (severe) and frontal sinus tenderness. Left sinus exhibits maxillary sinus tenderness (severe) and frontal sinus tenderness. Mouth/Throat: Uvula is midline, oropharynx is clear and moist and mucous membranes are normal. Tonsils are 0 on the right. Tonsils are 0 on the left. No tonsillar exudate. Eyes: Conjunctivae are normal. Pupils are equal, round, and reactive to light. Cardiovascular: Normal rate, regular rhythm, S1 normal, S2 normal and normal heart sounds. Pulmonary/Chest: Effort normal and breath sounds normal. No respiratory distress. She has no wheezes. Lymphadenopathy: Head (right side): Tonsillar adenopathy present. Head (left side): Tonsillar adenopathy present. She has no cervical adenopathy. Neurological: She is alert and oriented to person, place, and time. Skin: Skin is warm, dry and intact. No rash noted. Psychiatric: She has a normal mood and affect. Her speech is normal and behavior is normal. Thoughtcontent normal. Vitals reviewed. Assessment/Plan Tiana was seen today for sinus problem. Diagnoses and all orders for this visit: Acute recurrent pansinusitis - amoxicillin-clavulanate (AUGMENTIN) 875-125 MG per tablet; Take 1 tablet by mouth 2 (Two) Times aDay. documented in this encounter Plan of Treatment Not on file documented as of this encounter Visit Diagnoses Diagnosis Acute recurrent pansinusitis- Primary documented in this encounter Care Teams Route Sales Specialist Relationship Specialty Start Date End Date Daysi Michael PA PCP - General Physician Terminal Press Operator 07/26/18 documented as of this encounter
--- OUTSIDE RECORDS SUMMARY | 2024-03-04 13:14 | XMS_ITS | Encounter Summary ---
Author Organization [facility] Address [address] [place] [address] Care Team Providers Care Robotic Machine Tender Production Name Role Phone Daysi Michael Primary Care Provider [phone] Reason for Visit * Reason Comments Consult Encounter Details Date Type Department Care Team (Late st Contact Info) Description 08/05/2021 2:10 PM EDT Office Visit [facility] [address], [address] [place] [address] Emily Cintron, GLASS TECHNICIAN/INSTALLER [address] [place] [address] Left ankle pain, unspecified chronicity (Primary Dx) Social History Tobacco Use Types [...] Sign Reading Time Taken Comments Blood Pressure 128/86 08/05/2021 2:04 PM EDT Pulse 85 08/05/2021 2:04 PM EDT Temperature 37.2 ??C (99 ??F) 08/05/2021 2:04 PM EDT Respiratory Rate - - Oxygen Saturation 100% 08/05/2021 2:04 PM EDT Inhaled Oxygen Concentration - - Weight 88.5 kg (195 lb) 08/05/2021 2:04 PM EDT Height 172.7 cm (5' 8 ) 08/05/2021 2:04 PM EDT Body Mass Index 29.65 08/05/2021 2:04 PM EDT documented in this encounter Miscellaneous Notes * Progress Notes - Emily Cintron APRN - 08/05/2021 2:10 PM EDT Chief complaint: left ankle pain History of present illness: Tiana Boone 50 y.o. female presents to clinic for evaluation of her left lateral ankle pain and instability. She states that she has a history of multiple ankle sprains.She had a Brostrom procedure on the right. Yesterday she her left ankle gave out on her and she fell. She now has lateral ankle pain and swelling. She states she has a history of anxiety and depression, but is otherwise healthy. She smokes 1/2 ppd. She has not had any treatment for her left ankle pain. I have reviewed the patient's past medical [...] Appearance: moderate swelling over the lateral ankle, tenderness to palpation ROM: able to minimally [...] lateral ankle pain and instability. I will place her in a boot today since the injury just happened yesterday and it is too painful for her weight bear. I will provide her with crutches today for mobility assistance. I will see her back in 3 weeks for a repeat clinical exam and hopefully transition her to an ankle brace at that time. She wasagreeable with this. She states she can not tolerated NSAIDS so I will send her in tylenol for paincontrol. documented in this encounter Plan of Treatment Not on file documented as of this encounter Visit Diagnoses Diagnosis Left ankle pain, unspecified chronicity- Primary documented in this encounter Additional Health Concerns Assessment Noted Time A fall risk assessment has been complete d for the patient 08/05/2021 2:01 PM EDT documented as of this encounter Care Teams Robotic Machine Tender Production Relationship Specialty Start Date End Date Daysi Michael PA [address] [place] [address] PCP - General 08/17/20 documented as of this encounter
--- OUTSIDE RECORDS SUMMARY | 2024-03-04 13:14 | XMS_ITS | Encounter Summary ---
Author Organization [facility] Address [address] [place] [address] Care Team Providers Care Manager Of Organizational Development Name Role Phone Unavailable Primary Care Provider Unavailabl e Encounter Details Date Type Department Care Team (Late st Contact Info) Description 08/20/2016 [facility] AEHR Vitals Encounter [facility] OUTPATIENT CONVERSIONS [address] [place] [address] Provider, MD Santana [address] [place] [address] Social History Tobacco Use Types Packs/Day [...] Weight 78 kg (172 lb 0.1 oz) 08/20/2016 6:21 PM EDT Height 172.7 cm (5' 8 ) 08/20/2016 6:21 PM EDT Body Mass Index 26.15 08/20/2016 6:21 PM EDT documented in this encounter Plan of Treatment Not on file documented as of this encounter Visit Diagnoses Not on filedocumented in this encounter
--- OUTSIDE RECORDS SUMMARY | 2024-03-04 13:14 | XMS_ITS | Encounter Summary ---
Author Organization [facility] Address [address] [place] [address] Care Team Providers Care Principal Administrative Clerk Name Role Phone Unavailable Primary Care Provider Unavailabl e Encounter Details Date Type Department Care Team (Late st Contact Info) Description 01/22/2015 Legacy AEHR Vitals Encounter [facility] OUTPATIENT CONVERSIONS [address] [place] [address] Provider, MD Santana [address] [place], [place] [id number] Social History Tobacco Use Types Packs/Day Years [...] Weight 60.8 kg (133 lb 15.9 oz) 01/22/2015 3:49 PM EDT Height 172.7 cm (5' 8 ) 01/22/2015 3:49 PM EDT Body Mass Index 20.37 01/22/2015 3:49 PM EDT documented in this encounter Plan of Treatment Not on file documented as of this encounter Visit Diagnoses Not on filedocumented in this encounter
--- OUTSIDE RECORDS SUMMARY | 2024-03-04 13:14 | XMS_ITS | Encounter Summary ---
Author Organization [facility] Address [address] [place] [address] Care Team Providers Care Senior Ios Software Engineer Name Role Phone Unavailable Primary Care Provider Unavailabl e Encounter Details Date Type Department Care Team (Late st Contact Info) Description 05/08/2014 Legacy AEHR Vitals Encounter [facility] OUTPATIENT CONVERSIONS [address] [place] [address] Provider, MD Santana [address] [place], [place] [id number] Social History Tobacco Use Types Packs/Day Years [...] - Inhaled Oxygen Concentration - - Weight 63.5 kg (139 lb 15.9 oz) 05/08/2014 9:34 AM EST Height 172.7 cm (5' 8 ) 05/08/2014 9:34 AM EST Body Mass Index 21.29 05/08/2014 9:34 AM EST documented in this encounter Plan of Treatment Not on file documented as of this encounter Visit Diagnoses Not on filedocumented in this encounter
--- OUTSIDE RECORDS SUMMARY | 2024-03-04 13:14 | XMS_ITS | Encounter Summary ---
Author Organization [facility] Address [address] [place] [address] Care Team Providers Care Marine Engineering Consultant Name Role Phone Unavailable Primary Care Provider Unavailabl e Encounter Details Date Type Department Care Team (Late st Contact Info) Description 11/09/2007 Historical Mammograp hy Encounter [facility] HISTORICAL CONV [address] [place] [address] Interface, See Report Social History Tobacco Use Types Packs/Day Years Used Date Smoking Tobacco: Never Assessed Comments Unknown Sex and Gender Information Value Date Recorded Sex Assigned at Not on file Legal Sex Female 10:46 AM EDT Gender Identity Not on file Sexual Orientation Not on file documented as of this encounter Plan of Treatment Not on file documented as of this encounter Procedures Procedure Name Priority Date/Time Associated Diagnosis Comments MAMMO HISTORICAL RESULT Routine 11/09/2007 8:37 AM EDT documented in this encounter Results * MAMMO HISTORICAL RESULT (11/09/2007 8:37 AM EDT) Anatomical Region Laterality Modality Breast Mammography 11/09/2007 8:37 AM EDT Narrative 11/09/2007 11:40 AM EDT ?[facility] ? [address] ??[place], [place] [address] ? NAME: BOONEMICHAEL ? : ??74 ??MR#: [id number] ? LOC: ?? CO ? AGE: 36Y ?? Pt type: CO ?Exam Date: 11/08/840 ? SEX: F ?? AN#:[id number] ?Ck-in#: [id number] ? [facility] ? [address] ? [place] ?[place] ?[address] ? Chk-in # ?? Order ?Exam ?[id number] ?? 0001 ? [id number] ??BC MAMM DIAG BILAT DIG PNL ? Ord Diag: GALATORRHEA ?[id number] ?? 0002 ? [id number] ??BC MAMM OUTSIDE FILM DIGITIZED ? Ord Diag: GALATORRHEA ? HISTORY: ??History indicates bilateral galactorrhea. ??The patient indicates that she is having a milky discharge on the left which is nonspontaneous. ??She has been having left nipple retraction for the last year. Her mother was diagnosed with breast cancer at 34 and four of her mother's sisters were diagnosed with breast cancer. ?? BILATERAL DIAGNOSTIC DIGITAL MAMMOGRAM: ?? COMPARISON USED: ??05/11/07 from [facility], digitized. ?? TECHNIQUE: ??CC and MLO digital views of both breasts were performed. ?? FINDINGS: Breast parenchyma is heterogeneously dense in the anterior halves of both breasts. ??A moderately nodular pattern is stable bilaterally. ??There is some mild asymmetry close to the nipple on the left side but it's unchanged from May 2007. ??No spiculated mass or suspicious cluster of microcalcifications is seen. Ultrasound of the subareolar left breast is recommended to evaluate nipple discharge. ?? IMPRESSION: ??Nothing seen by mammogram to explain the non-spontaneous, left milky discharge. ??Recommend ultrasound. ?? Bi-Rads 0, incomplete. ??Needs additional imaging. ?? ICAD was utilized. ?? The results of this examination were communicated directly with the ? FINAL ?CONTINUED ?Page ??1 ? RADIOLOGY REPORT ?[facility] ? [address] ??[place], [place] [address] ? NAME: MICHAEL BOONE ? : ??74 ??MR#: [id number] ? LOC: ?? CO ? AGE: 36Y ?? Pt type: CO ?Exam Date: 11/09/07840 ? SEX: F ?? AN#:[id number] ?Ck-in#: [id number] ? [facility] ? [address] ? [place] ?[place] ?[address] ? Checkin-Exam Code Summary ? [phone] patient and she was given a report in lay terminology. ?/READ BY/ GODWIN L ATKINS ?/Released By/ GODWIN L ATKINS ?Released By Date/Time: ??11/09/071136 ?Core Placer: ??JBW ? FINAL ? Page ??2 ? RADIOLOGY REPORT us See Report Interface IMG MAMMOGRAPHY ORDERABLES Final Result documented in this encounter Visit Diagnoses Not on filedocumented in this encounter
--- OUTSIDE RECORDS SUMMARY | 2024-03-04 13:14 | XMS_ITS | Encounter Summary ---
Author Organization [facility] Address [address] [place] [address] Care Team Providers Care Circle Cutting Saw Operator Name Role Phone Unavailable Primary Care Provider Unavailabl e Encounter Details Date Type Department Care Team (Late st Contact Info) Description 07/14/2016 Legacy AEHR Vitals Encounter [facility] OUTPATIENT CONVERSIONS [address] [place] [address] Provider, MD Santana [address] [place] [address] Social History Tobacco Use Types Packs/Day [...] - Inhaled Oxygen Concentration - - Weight 77.6 kg (171 lb 0.2 oz) 07/14/2016 2:56 P M EDT Height 172.7 cm (5' 8 ) 07/14/2016 2:56 PM EDT Body Mass Index 26 07/14/2016 2:56 PM EDT documented in this encounter Plan of Treatment Not on file documented as of this encounter Visit Diagnoses Not on filedocumented in this encounter
--- OUTSIDE RECORDS SUMMARY | 2024-03-04 13:14 | XMS_ITS | Encounter Summary ---
Author Organization [facility] Address [address] [place] [address] Care Team Providers Care Patient Services Clerk Name Role Phone Daysi Michael Primary Care Provider [phone] Encounter Details Date Type Department Care Team (Latest Contact Info) Description 08/05/2021 2:07 PM EDT - 08/05/2021 11:59 PM EDT Hospital Encounter [facility] [address], [address] [place] [id number] Left ankle pain, unspecified chronicity Discharge Disposition: Home or Self Care Social History Tobacco Use Types Packs/Day Years [...] PM EDT documented as of this encounter Medications at Time of Discharge ARIPiprazole (Abilify) 5 MG tablet Take 5 mg by mouth 1 (one) time each day. 07/02/2021 atorvastatin (Lipitor) 40 MG tablet Take 40 mg by mouth 1 (one) time each day. 07/19/2021 benztropine (Cogentin) 0.5 MG tablet Take 1 tablet once a day as needed for restlessness 07/18/2021 citalopram (CeleXA) 10 MG tablet Take 10 mg by mouth 1 (one) time each day. 07/18/2021 D3 High Potency 25 MCG (1000 UT) capsule Take 1,000 Units by mouth 1 (one) time each day. 07/13/2021 ergocalciferol 1.25 MG (51430 UT) capsule Take 1 capsule by mouth 1 (one) time per week. 07/13/2021 Melatonin 5 MG tablet tablet Take by mouth. acetaminophen (Tylenol) 325 MG tabletIndications :Left ankle pain, unspecified chronicity Take 2 tablets (650 mg total) by mouth every 6 (six) hours if needed for mild pain for up to 10 days. 30 tablet 08/05/2021 documented as of this encounter Plan of Treatment Not on file documented as of this encounter Procedures Procedure Name Priority Date/Time Associated Diagnosis Comments XR ANKLE LEFT 3+ VIEWS Routine 08/05/2021 2:18 PM EDT Left ankle pain, unspecified chronicity documented in this encounter Results * XR Ankle Left 3+ Views (08/05/2021 2:18 PM EDT) Anatomical Region Laterality Modality Lower Extremities, Ankle Left Digital Radiography Impressions 08/07/2021 7:24 AM EDT Small calcaneal enthesophytes. No acute osseous abnormalities are noted. CRITICAL RESULT: ?? No. COMMUNICATION: Per this written report. Dictated by Kike Sexton on 08/07/2021 7:23 AM Signed by Kike Sexton on 08/07/2021 7:24 AM Narrative 08/07/2021 7:24 AM EDT Exam/Procedure: XR ANKLE LEFT 3+ VIEWS ordered by EMILY CINTRON, [id number] CLINICAL INDICATION: Pain TECHNIQUE: XR ANKLE LEFT 3+ VIEWS COMPARISON: None. FINDINGS: Ankle mortise and talar dome are maintained. No fracture is noted. No soft tissue swelling is noted. Small calcaneal enthesophytes. Procedure Note Kike Sexton MD - 08/07/2021 Exam/Procedure: XR ANKLE LEFT 3+ VIEWS ordered by EMILY CINTRON [id number] CLINICAL INDICATION: Pain TECHNIQUE: XR ANKLE LEFT 3+ VIEWS COMPARISON: None. FINDINGS: Ankle mortise and talar dome are maintained. No fracture is noted. No softtissue swelling is noted. Small calcaneal enthesophytes. IMPRESSION: Small calcaneal enthesophytes. No acute osseous abnormalities are noted. CRITICAL RESULT: No. COMMUNICATION: Per this written report. Dictated by Kike Sexton on 08/07/2021 7:23 AM Signed by Kike Sexton on 08/07/2021 7:24 AM Emily Cintron CERTIFIED ADDICTION COUNSELOR IMG XR PROCEDURES Final Resu lt documented in this encounter Visit Diagnoses Diagnosis Left ankle pain, unspecified chronicity documented in this encounter Additional Health Concerns Assessment Noted Time A fall risk assessment has been complete d for the patient 08/05/2021 2:01 PM EDT documented as of this encounter Care Teams Patient Services Clerk Relationship Specialty Start Date End Date Daysi Michael PA [address] [place] [address] PCP - General 08/17/20 documented as of this encounter
[2024-03-04 13:39] LABS: Basophils % 0.5 % (0.1-2.0); Eosinophils # 0.2 K/mm3 (0.0-0.4); Eosinophils % 1.8 % (0.1-12.0); Hematocrit 39.1 % (37.0-47.0); Hemoglobin 13.6 g/dL (12.2-16.2); Lymphocytes # 1.7 K/mm3 (0.7-4.5); Lymphocytes % 19.3 % (10-50); Mean Corpuscular HGB Conc 34.7 g/dL (31.8-35.4); Mean Corpuscular Hemoglobin 30.5 pg (27.0-31.2); Mean Corpuscular Volume 87.9 fl (81-99); Mean Platelet Volume 8.5 fl (7.4-10.4); Monocytes # 0.4 K/mm3 (0.1-1.0); Monocytes % 4.9 % (1.7-9.3); Neutrophils # 6.5 K/mm3 (1.8-7.8); Neutrophils % 73.6 % (37.0-80.0); Platelet Count 243 K/mm3 (142-424); Red Blood Count 4.44 M/mm3 (4.20-5.40); Red Cell Distribution Width 13.9 % (11.5-17.5); White Blood Count 8.8 K/mm3 (4.8-10.8)
[2024-03-04 14:25] LABS: Albumin Level 4.4 g/dl (3.5-5.0); Chloride 107 mmol/L (98-107); Potassium 4.4 mmoL/L (3.5-5.1); Sodium 140 mmol/L (136-145)
[2024-03-04 14:27] LABS: Blood Urea Nitrogen 8 mg/dl (7-17); Estimated Glomerular Filt Rate 76 ml/min (>60); GFR (African American) 92 ML/MIN (>60)
[2024-03-04 14:28] LABS: Alanine Aminotransferase 22 U/L (12-78); Alkaline Phosphatase 100 U/L (38-126); Anion Gap 9.4 mEq/L (5-15); Aspartate Amino Transferase 26 U/L (14-36); Bilirubin,Direct 0.1 mg/dl (0.0-0.4); Bilirubin,Indirect 0.4 mg/dL (0.0-0.9); Bilirubin,Total 0.5 mg/dl (0.2-1.3); Bilirubin,Unconjugated 0.4 mg/dL (0.0-1.1); Calcium 9.2 mg/dl (8.4-10.2); Carbon Dioxide 28 mmol/L (22.0-30.0); Chol/HDL Ratio 2.9 (1-3.5); Cholesterol 135 mg/dl (140-200); Glucose 102 mg/dl (74-100); HDL Cholesterol 46 mg/dl (40-60); Magnesium 2.1 mg/dl (1.6-2.3); Total Protein,Serum 6.7 g/dl (6.3-8.2); Triglycerides 75 mg/dl (30-150); VLDL Cholesterol 15 mg/dL (0-40)
[2024-03-04 14:34] LABS: Free T4 (Free Thyroxine) 1.24 ng/dl (0.78-2.19)
[2024-03-04 14:45] LABS: Direct LDL Cholesterol 69.67 mg/dL (100-129)
[2024-03-04 14:59] LABS: Thyroid Stimulating Hormone 2.32 uIU/mL (0.465-4.68)
== END 2024-03-04 23:59 | disposition home or self-care (01) ==
LOC: LAB 13:13
PROVIDERS: PCP Physician Assistant; Visit Provider Internal Medicine
DX: R07.9 Chest pain, unspecified (principal); R94.31 Abnormal electrocardiogram [ECG] [EKG]; R60.0 Localized edema; E78.5 Hyperlipidemia, unspecified; I10 Essential (primary) hypertension; Z72.0 Tobacco use
CPT/HCPCS: 36415; 80048; 80061; 80076; 83735; 84439; 84443; 85025

== ENCOUNTER 2024-03-17 10:40 | Outpatient (CLI) | payer OTHER, SELFPAY ==
--- NOTE | 2024-03-17 10:43 | CA_ITS ---
APPROVED REPORT EXAM: Comprehensive 2D, Doppler, and color-flow Echocardiogram Emergency Medical Technician Basic: Abida Condon RVT Ht: 5 ft 8 in Wt: 171lbs BSA: 1.91 BP: 134/96 mmHg Indications: CP,ABN EKG,COPD,EDEMA,HTN,SMOKER,HX BREAST CA 2D Dimensions Left Atrium 3.26 cm F: 2.7 - 3.8 LA Volume 27.50 mL RVID Base (AP4) 2.29 cm (M/F) 2.5-4.1 LA Volume Index 14.40 mL/m2 (M/F) 16-34 LVOT 2.27 cm (M/F) 1.5-2.5 EF AP4 57.60 % GL Strain -18.7 % M-Mode Dimensions RVDd 3.38 cm (0.9-2.6) LVDd 4.70 cm (3.5-5.7) Ao Diam 2.97 cm (2.0-3.7) LVDs 2.35 cm (3.5-5.7) IVSd 0.95 cm (0.6-1.1) PWd 0.76 cm (0.6-1.1) EF (Teich) 81.30% FS 50.00% EDV (Teich) 102.40 mL TAPSE 1.98 (<1.7) ESV (Teich) 19.10 mL LV Diastology E Decel Time 189 (160-240 msec) E/A Ratio 1.0 MED E' 8.2 (>= 7 cm/sec) E'/MED E' Ratio 7.63 (<= 14) LAT E' 11.8 (>= 10 cm/sec) E/LAT E' Ratio 5.31 (<= 14) Aortic Valve LVOT Max 117.0 (70-110 cm/s) GLORIA Index 2.01 cm2/m2 LVOT VTI 22.99 cm AoV Peak Joe. 121.0 (50-130 cm/s) AO Peak GR. 5.40 mmHg AO Mean GR. 3.20 (<5 mmHg) AO VTI 24.2 (18-25 cm) GLORIA (VTI) 3.84 (2.5-4.5 cm2) Mitral Valve MV E Max Joe. 63.0 (40-130 cm/s) MV A Velocity 62.0 (40-130 cm/s) E/A Ratio 1.01 MV Decel. Time 189 (160-240 ms) Tricuspid Valve TR P. Velocity 186.00 cm/s RAP Estimate 10.00 mmHg RVSP 23.80 mmHg Left Ventricle The left ventricle is normal size. The left ventricular systolic function is normal. The left ventricular ejection fraction is within the normal range. There is normal left ventricular wall thickness. There is normal LV segmental wall motion. The left ventricular diastolic function is normal. LVEF is 55%. Right Ventricle The right ventricle is normal size. The right ventricular systolic function is normal. Atria The left atrium size is normal. The right atrium size is normal. There is no Doppler evidence of interatrial shunt. Aortic Valve The aortic valve opens well. There is no aortic valvular stenosis. No aortic regurgitation is present. Mitral Valve The mitral valve is normal in structure. No evidence of mitral valve stenosis. Trace mitral regurgitation. Tricuspid Valve Tricuspid valve is grossly normal in structure and function. There is no tricuspid valve stenosis. Mild tricuspid regurgitation. RVSP is normal. Pulmonic Valve The pulmonary valve is normal in structure. Trace pulmonic regurgitation. Great Vessels The aortic root is normal in size. IVC is normal in size and collapses >50% with inspiration. Pericardium There is no pericardial effusion. Other Information Study Quality: Adequate Conclusion Normal biventricular systolic function. Mild TR. Electronically signed by : Mandie Ruiz MD 03/30/2024 12:30:45
--- NOTE | 2024-03-17 11:22 | CT_ITS ---
APPROVED REPORT Phlebotomy Program Coordinator: CLINICAL INDICATION Chest Pain TECHNIQUE Image Acquisition: A 128 slice MDCT scanner (FibeRioa View) was used for data acquisition. A noncontrast coronary calcium scan was performed. A CT attenuation threshold of 130 Hounsfield units (HU) was used for the detection of calcium in contiguous voxels of 1 sq mm in area to be counted as individual lesions. Bolus tracking in the ascending aorta with a threshold of 180 HU was performed. Immediately afterwards, ECG synchronized cardiac CT was then performed from the cardiac base to apex using retrospective gating with ECG tube current modulation. A total of 85 mL of Isovue 370 mg/mL contrast medium was administered at 5 mL/sec followed by a saline flush using a biphasic injection protocol. A tube voltage of 120 KVp was used. The patient received the following medications prior to the cardiac CT. 50 mg of oral metoprolol 15 mg of oral ivabradine 0.8 mg of sublingual nitroglycerin The average heart rate at the time of acquisition was 53 bpm and regular. Image Reconstruction Transaxial images were reconstructed at 0.67 mm slide thickness. Data was reviewed interactively on an advanced workstation capable of 2 and 3-dimensional displays in all conventional reconstruction formats, including multiplanar reformations, maximum intensity projections, curved multiplanar reformations, and volume rendered reconstructions. When applicable, selected routine images describing the relevant coronary anatomy and pathology were saved and sent to PACS. Complications None Technical Quality Overall image quality was fair due to presence of step-artifact. Coronary artery opacification was adequate. Total DLP (Dose-Length Product) is 1616.2 mGy-cm. The reported value represents the total of one or more individual components during the CT acquisition of this date and at this time, and as such, the same value may appear in more than one CT report depending on the interpreting/reporting physicians. COMPARISON None FINDINGS CT Coronary Calcium Scoring LMA (Left Main Artery) = 11 LAD (Left Anterior Descending) = 0 LCX (Left Coronary Circumflex) = 0 RCA (Right Coronary Artery) = 0 Total Calcium Score = 11 using the AJ-130 method. The observed calcium score of 11 is at 89th percentile for subjects of the same age, sex, and race/ethnicity. The interpretation of the calcium heart score is based on the following continuum*: 0 = no calcified plaque detected (risk of coronary artery disease is very low ??? less than 5%) 1-10 = calcium detected in extremely minimal levels (risk of coronary diseases is still low ??? less than 10%) 11-100 = mild levels of plaque detected with certainty (mild or minimal narrowing of heart arteries is likely) 101-400 = definite,at least moderate levels of plaque detected (relatively high risk of a heart attack within 3-5 years) >401-999 = extensive levels of plaque detected (high risk of heart attack, high levels of vascular disease are present, high likelihood of at least one significant coronary narrowing) *The calcium heart score quantifies the burden of coronary calcification/plaque in the coronary arteries. The calcium heart score is not able to evaluate the presence or burden of non-calcified (i.e. soft) plaque. There is no identifiable calcification in the aortic valve, mitral annulus or mitral valve, pericardium, or myocardium. Coronary CT Angiography The coronary arterial system is right dominant. Quantitative Stenosis Grading: Left Main (LM): The left main originates normally from the left sinus of Valsalva. The LM bifurcates into the left anterior descending artery and left circumflex artery. There is 1 focus of calcification in the distal LM segment, with no evidence of luminal stenosis. Left Anterior Descending (LAD) and Diagonal Branches: The LAD gives off 3 diagonal branch(es). The LAD and its branches are patent with no evidence of atherosclerosis. There is no evidence of LAD-myocardial bridge. Left Circumflex (LCX) and Obtuse Marginals (OM): The LCX gives off 1 Obtuse Marginal (OM) branch(es). The LCX and its branches are patent with no evidence of atherosclerosis. Right Coronary Artery (RCA): The RCA originates normally from the right sinus of Valsalva. The RCA gives off a posterior descending artery (PDA) and posterolateral (PL) branches. The RCA and its branches are patent with no evidence of atherosclerosis. Non-Coronary Cardiac Findings: Analysis of the left ventricular (LV) structure and function was performed after 3-D reconstruction of the LV from axial images, with user-corrected automatic contouring for assessment of LV volumes and user-defined reconstruction from oblique planes for measurement of 3-D cardiac structure and function. -The left ventricle systolic function is normal. -There is no left atrial appendage filling defect. Two right pulmonary veins and two left pulmonary veins drain normally into the left atrium. -No pericardial thickening or calcification. -Central and branch pulmonary arteries in the [id number] are unremarkable. -Thoracic aorta within the visualized thoracic aortic-branches in the [id number]-vgnh is unremarkable. Extracardiac Structures No significant extra-cardiac findings. Note, however, that this study is focused on the cardiac findings. IMPRESSION -Presence of coronary calcification with an Agatston score = 11 using the AJ-130 method. -The observed calcium score of 11 is at 89th percentile for subjects of the same age, sex, and race/ethnicity. -No evidence of significant flow-limiting atherosclerosis of the coronary arteries. -No evidence of coronary anomalies or myocardial bridges. -CAD-RADS 1. Management recommendations per ACC/AHA guidelines*, as clinically appropriate. *Recommendations: CAD RADS 0: Reassurance. Consider non-atherosclerotic causes of chest pain. CAD RADS 1: Consider non-atherosclerotic causes of chest pain. Consider preventive therapy and risk factor modification. CAD RADS 2: Consider non-atherosclerotic causes of chest pain. Consider preventive therapy and risk factor modification, particularly for patients with nonobstructive plaque in multiple segments. CAD RADS 3: Consider further functional testing. Consider symptom-guided anti-ischemic and preventive pharmacotherapy as well as risk factor modification per published guideline statements. CAD RADS 4A: Consider further functional testing or invasive coronary angiography with revascularization per published guideline statements. Consider symptom-guided anti-ischemic and preventive pharmacotherapy as well as risk factor modification per published guideline statements. CAD RADS 4B: Invasive coronary angiography recommended with revascularization per published guideline statements. Consider symptom-guided anti-ischemic and preventive pharmacotherapy as well as risk factor modification per published guideline statements. CAD RADS 5: Consider invasive angiography and/or viability assessment with revascularization per published guideline statements. Consider symptom-guided anti-ischemic and preventive pharmacotherapy as well as risk factor modification per published guideline statements. CRITICAL RESULT None COMMUNICATION Per this written report The coronary and cardiac findings of this CCTA were reviewed, reported, and signed by Justin Ruiz MD ([employer] Superintendent) Conclusion Electronically signed by : Mandie Ruiz MD 03/18/2024 00:33:39
[2024-03-17] MEDS: METOPROLOL TARTRATE 50MG TABLET PO (11:38)
[2024-03-17] MEDS: IVABRADINE HCL 7.5MG TABLET PO (11:39)
[2024-03-17 11:45] VITALS: BP 145/84; PULSE 82; RESP 18; O2SAT 99; BMI 26.1
[2024-03-17 12:45] VITALS: BP 115/67; PULSE 55; RESP 18; O2SAT 99
[2024-03-17] MEDS: NITROGLYCERIN 0.4MG SL TABLET SL (12:45)
[2024-03-17 12:50] VITALS: BP 102/66; PULSE 58; RESP 18; O2SAT 98
[2024-03-17 12:55] VITALS: BP 105/57; PULSE 58; RESP 18; O2SAT 99
[2024-03-17 13:00] VITALS: BP 104/58; PULSE 53; RESP 18; O2SAT 97
[2024-03-17] MEDS: 0.9 % SODIUM CHLORIDE 50 ML VIAL IV (13:04)
[2024-03-17] MEDS: IOPAMIDOL-370 (76%);100ML BOTTLE 85 ML IV (13:04)
[2024-03-17] MEDS: SODIUM CHLORIDE 0.9% 10ML SYR (RAD ONLY) 10 ML IV (13:04)
--- OUTSIDE RECORDS SUMMARY | 2024-03-22 10:15 | XMS_ITS | Encounter Summary ---
Author Organization [facility] Address [address] [place] [address] Care Team Providers Care Local Announcer Name Role Phone Daysi Michael Primary Care Provider [phone] Encounter Details Date Type Department Care Team [...] documented as of this encounter Care Teams Local Announcer Relationship Specialty Start Date End Date Daysi Michael PA [address] [place] [address] PCP - General 08/17/20 documented as of this encounter
--- OUTSIDE RECORDS SUMMARY | 2024-03-22 10:15 | XMS_ITS | Encounter Summary ---
Author Organization [facility] Address [address] [place] [address] Care Team Providers Care Network Control Supervisor Name Role Phone Unavailable Primary Care Provider Unavailabl e Encounter Details Date Type Department Care Team (Late st Contact Info) Description 10/09/2014 Legacy AEHR Vitals Encounter [facility] OUTPATIENT CONVERSIONS [address] [place] [address] Provider, MD Santana [address] [place] [address] Social History Tobacco Use Types Packs/Day [...]
--- OUTSIDE RECORDS SUMMARY | 2024-03-22 10:15 | XMS_ITS | Encounter Summary ---
Author Organization [facility] Address [address] [place] [address] Care Team Providers Care Renewable Energy Engineer Name Role Phone Daysi Michael Primary Care Provider [phone] Reason for Visit * Reason Comments Follow-up Encounter Details Date Type Department Care Team (Late st Contact Info) Description 09/16/2021 1:50 PM EDT [facility] Visit [facility] [address], [address] [place] [address] Emily Cintron, SHEET ROCK SANDER [address] [facility] [place] [address] Left ankle pain, unspecified chronicity [...] documented as of this encounter Care Teams Renewable Energy Engineer Relationship Specialty Start Date End Date Daysi Michael PA [address] [place] [address] PCP - General 08/17/20 documented as of this encounter
--- OUTSIDE RECORDS SUMMARY | 2024-03-22 10:15 | XMS_ITS | Clinical Summary ---
Author Organization [facility] Address [address] [place] [address] Care Team Providers Care Radial Drill Operator For Plastic Name Role Phone AlecDaysi Elen HOOPER Primary Care Provider [phone] Allergies Active Allergy Reactions Criticality Noted Date Comments Ibuprofen Nausea 07/02/2011 Oxycodone-Acetaminophen Unknown - Patien t states they do not know rxn details Low 08/05/2021 Prednisone Other - please docum ent in the comment field Medium 07/26/2018 Medications ergocalciferol 1.25 MG (95999 UT) capsule Take 1 capsule by mouth [...] 03/16/2014 [facility]-Zoster Vaccines (1 of 2) 2022 [id number] Vaccine (2023- season) 2023 [facility]-Influenza Vaccine (#1) [...] Narrative SUNQUEST - 06/30/2014 2:00 PM EDT [facility] ?MR #: [id number] [facility] ?[place], [place] ??[id number] ?1970 (Age: 43) ?? FW ?Collect Date: 06/28/2014 00:00 ?Receipt Date: 06/28/2014 15:58 ?Page 1 DEPARTMENT OF PATHOLOGY AND ??LABORATORY MEDICINE CYTOPATHOLOGY REPORT ? Email: [email or web address] ?[email or web address] ? ATTENDING MD/Practitioner: ??Christopher Iniguez MD ? Service: SGO ? Location: [facility] ? Reported: 06/30/2014 14:00 ? Collected: 06/28/2014 00:00 DIAGNOSIS A. ??PELVIC WASHING: (CONCENTRATE AND CELL BLOCK) ? NO EVIDENCE OF MALIGNANCY. ? Electronically Signed Out ? JEANINE Dodge([facility]) Ann Shelley M.D. PROCEDURES/ADDENDA GROSS DESCRIPTION: 22 mls bloody fluid CLINICAL INFORMATION: CLINICAL DIAGNOSIS Bilateral breast cancer SPECIMEN DESCRIPTION: A: ??PELVIC WASHING ? THIN PREP PROCESS CELLULAR ENHANCEMENT, CELL BLOCK F ICD: 789.30 ? ABDOMINAL OR PELVIC SWELLING, MASS, OR LUMP, UNSPECIFIED SITE 174.9 ? MALIGNANT NEOPLASM BREAST NOS (FEMALE) F: A; 85633, 62680, 83192 SNOMED CODES: A; [id number] A resident has participated in this service. [...] femaleDate of Service: ??03/16/2014 Referring Phy:Karly Alegria: ??[phone] COMMUNICATION: The results and recommendations were discussed [...] femaleDate of Service: ??03/16/2014 Referring Phy:Karly Alegria: ??[phone] FINAL REPORT PROCEDURE: Diagnostic Tomosynthesis - bilateral [...] Gender: femaleDate of Service:03/16/2014 Referring Phy:Karly Michaelscandyount: [phone] FINAL REPORT PROCEDURE: Diagnostic Tomosynthesis - bilateral [...] Gender: femaleDate of Service:03/16/2014 Referring Phy:Karly Michaelsccount: [phone] COMMUNICATION: The results and recommendations were discussed [...] Recently Relevant to Health Maintenance Insurance [employer] [facility] MEDICAID Care Teams Radial Drill Operator For Plastic Relationship Specialty Start Date End Date Daysi Michael PA [address] [place] [address] [facility] - General 08/17/20
--- OUTSIDE RECORDS SUMMARY | 2024-03-22 10:15 | XMS_ITS | Encounter Summary ---
Author Organization [facility] Address [address] [place] [id number] Care Team Providers Care Surgical Instrument Maker Name Role Phone Daysi Michael Primary Care Provider [phone] Encounter Details Date Type Department Care Team [...] documented as of this encounter Care Teams Surgical Instrument Maker Relationship Specialty Start Date End Date Daysi Michael PA [address] [place] [address] PCP - General 08/17/20 documented as of this encounter
--- OUTSIDE RECORDS SUMMARY | 2024-03-22 10:15 | XMS_ITS | Encounter Summary ---
Author Organization [facility] Address [address] [place] [address] Care Team Providers Care Bodywork Therapist Name Role Phone Unavailable Primary Care Provider Unavailabl e Encounter Details Date Type Department Care Team (Late st Contact Info) Description 08/06/2016 Legacy AEHR Vitals Encounter [facility] OUTPATIENT CONVERSIONS [address] [place] [address] Provider, MD Santana [address] [place] [address] Social History Tobacco Use Types Packs/Day [...]
--- OUTSIDE RECORDS SUMMARY | 2024-03-22 10:15 | XMS_ITS | Encounter Summary ---
Author Organization [facility] Address [address] [place] [address] Care Team Providers Care Mail Order Sorter Name Role Phone Unavailable Primary Care Provider Unavailabl e Encounter Details Date Type Department Care Team (Late st Contact Info) Description 01/22/2015 Legacy AEHR Vitals Encounter [facility] OUTPATIENT CONVERSIONS [address] [place] [address] Provider, MD Santana [address] [place], [place] [id number] Social History Tobacco Use Types Packs/Day Years [...]
--- OUTSIDE RECORDS SUMMARY | 2024-03-22 10:15 | XMS_ITS | Encounter Summary ---
Author Organization [facility] Address [address] [place] [address] Care Team Providers Care Tag Press Operator Name Role Phone Unavailable Primary Care Provider Unavailabl e Encounter Details Date Type Department Care Team (Late st Contact Info) Description 07/14/2016 Legacy AEHR Vitals Encounter [facility] OUTPATIENT CONVERSIONS [address] [place] [address] Provider, MD Santana [address] [place] [address] Social History Tobacco Use Types Packs/Day [...]
--- OUTSIDE RECORDS SUMMARY | 2024-03-22 10:15 | XMS_ITS | Encounter Summary ---
Author Organization [facility] Address [address] [place] [address] Care Team Providers Care Catcher Plug Name Role Phone Daysi Michael Primary Care Provider [phone] Reason for Visit * Reason Comments Consult Encounter Details Date Type Department Care Team (Late st Contact Info) Description 08/05/2021 2:10 PM EDT [facility] Visit [facility] [address] [place] [address] Emily Cintron, SCHOOL CUSTODIAN [address] [place] [address] Left ankle pain, unspecified chronicity [...] documented as of this encounter Care Teams Catcher Plug Relationship Specialty Start Date End Date Daysi Michael PA [address] [place] [address] PCP - General 08/17/20 documented as of this encounter
--- OUTSIDE RECORDS SUMMARY | 2024-03-22 10:15 | XMS_ITS | Encounter Summary ---
Author Organization [facility] Address [address] [place] [address] Care Team Providers Care Training Officer Name Role Phone Daysi Michael Primary Care Provider [phone] Reason for Visit * Reason Onset Date Comments HCN - Patient Message 09/25/2021 Encounter Details Date Type Department Care Team (Late st Contact Info) Description 09/25/2021 [facility] [address], [address] [place] [address] Emily Cintron, STEEL DIE PRINTER [address] [facility] [place] [address] HCN - Patient Message Social [...] state she would like MRI completed at [facility] Please include demographic, office notes to support MRI Best contact number and optimal time of day to reach caller: [phone] Note: Please do not reply to this message. Follow-up communication and further actions as a result of this message need to be communicated with the patient directly, if the patient is not active onMyChart. If the patient is active on MyChart, they will receive notification of the communication/outcome via [employer]. documented in this encounter Plan of Treatment Not on file documented as of this encounter Visit Diagnoses Not on filedocumented in this encounter Additional Health Concerns Assessment Noted Time A fall risk assessment has been complete d for the patient 09/16/2021 2:25 PM EDT documented as of this encounter Care Teams Training Officer Relationship Specialty Start Date End Date Daysi Michael PA [address] [place] [address] PCP - General 08/17/20 documented as of this encounter
--- OUTSIDE RECORDS SUMMARY | 2024-03-22 10:15 | XMS_ITS | Encounter Summary ---
Author Organization [facility] Address [address] [place] [address] Care Team Providers Care Warp Doffer Name Role Phone Unavailable Primary Care Provider Unavailabl e Encounter Details Date Type Department Care Team (Late st Contact Info) Description 08/07/2014 Legacy AEHR Vitals Encounter [facility] OUTPATIENT CONVERSIONS [address] [place] [address] Provider, MD Santana [address] [place] [address] Social History Tobacco Use Types Packs/Day [...]
--- OUTSIDE RECORDS SUMMARY | 2024-03-22 10:15 | XMS_ITS | Encounter Summary ---
Author Organization [facility] Address [address] [place] [address] Care Team Providers Care Sanding Supervisor Name Role Phone Unavailable Primary Care Provider Unavailabl e Encounter Details Date Type Department Care Team (Late st Contact Info) Description 06/11/2015 Legacy AEHR Vitals Encounter [facility] OUTPATIENT CONVERSIONS [address] [place] [address] Provider, MD Santana [address] [place] [address] Social History Tobacco Use Types Packs/Day [...]
--- OUTSIDE RECORDS SUMMARY | 2024-03-22 10:15 | XMS_ITS | Encounter Summary ---
Author Organization [facility] Address [address] [place] [address] Care Team Providers Care Cosmetic Sales Advisor Name Role Phone Unavailable Primary Care Provider Unavailabl e Encounter Details Date Type Department Care Team (Late st Contact Info) Description 09/24/2015 Legacy AEHR Vitals Encounter [facility] OUTPATIENT CONVERSIONS [address] [place] [address] Provider, MD Santana [address] [place] [address] Social History Tobacco Use Types Packs/Day [...]
--- OUTSIDE RECORDS SUMMARY | 2024-03-22 10:15 | XMS_ITS | Encounter Summary ---
Author Organization [facility] Address [address] [place] [address] Care Team Providers Care Social Media Job Titles Name Role Phone Unavailable Primary Care Provider Unavailabl e Encounter Details Date Type Department Care Team (Late st Contact Info) Description 08/20/2016 Legacy AEHR Vitals Encounter [facility] OUTPATIENT CONVERSIONS [address] [place] [address] Provider, MD Santana [address] [place] [address] Social History Tobacco Use Types Packs/Day [...]
--- OUTSIDE RECORDS SUMMARY | 2024-03-22 10:15 | XMS_ITS | Encounter Summary ---
Author Organization [facility] Address [address] [place] [address] Care Team Providers Care Supervisor Mending Name Role Phone Daysi Michael Primary Care Provider Encounter Details Date Type Department Care Team (Latest Contact Info) Description 08/05/2021 2:07 PM EDT - 08/05/2021 11:59 PM EDT Hospital Encounter [facility] [address] [place] [address] Left ankle pain, unspecified chronicity Discharge Disposition: [...] time each day. 07/13/2021 ergocalciferol 1.25 MG (40999 UT) capsule Take 1 capsule by mouth [...] LEFT 3+ VIEWS ordered by EMILY CINTRON, [id number] CLINICAL INDICATION: Pain TECHNIQUE: XR ANKLE LEFT 3+ VIEWS COMPARISON: None. FINDINGS: Ankle mortise and talar dome are maintained. No fracture is noted. No soft tissue swelling is noted. Small calcaneal enthesophytes. Procedure Note Kike Sexton MD - 08/07/2021 Exam/Procedure: XR ANKLE LEFT 3+ VIEWS ordered by EMILY CINTRON [id number] CLINICAL INDICATION: Pain TECHNIQUE: XR ANKLE LEFT [...] Sexton on 08/07/2021 7:24 AM Emily Cintron HOROLOGIST APPRENTICE IMG XR PROCEDURES Final Resu lt documented in this encounter Visit Diagnoses Diagnosis Left ankle pain, unspecified chronicity documented in this encounter Additional Health Concerns Assessment Noted Time A fall risk assessment has been complete d for the patient 08/05/2021 2:01 PM EDT documented as of this encounter Care Teams Supervisor Mending Relationship Specialty Start Date End Date Daysi Michael PA [address] [place] [address] PCP - General 08/17/20 documented as of this encounter
--- OUTSIDE RECORDS SUMMARY | 2024-03-22 10:16 | XMS_ITS | Encounter Summary ---
[facility] Address [address] [place] [address] Care Team Providers Care Shaft Headman Name Role Phone Daysi Michael Primary Care Provider [phone] Reason for Visit * Reason Comments Sinus Problem Encounter Details Date Type Department Care Team (Late st Contact Info) Description 07/26/2018 4:00 PM EDT Office Visit [facility] [address] [place] [address] Acute recurrent pansinusitis (Primary Dx) Social History [...] Primary documented in this encounter Care Teams Shaft Headman Relationship Specialty Start Date End Date Daysi Michael PA PCP - General Physician Wind Up Worker 07/26/18 documented as of this encounter
--- OUTSIDE RECORDS SUMMARY | 2024-03-22 10:16 | XMS_ITS | Clinical Summary ---
[facility] Address [address] [place] [address] Care Team Providers Care Concrete Batcher Name Role Phone Daysi Michael Primary Care Provider [phone] Allergies Active Allergy Reactions Criticality Noted Date [...] (1 - 2023- season) [address] [facility] Care Teams Concrete Batcher Relationship Specialty Start Date End Date Daysi Michael PA PCP - General Physician Director Digital Marketing 07/26/18
--- OUTSIDE RECORDS SUMMARY | 2024-03-22 10:16 | XMS_ITS | Encounter Summary ---
Author Organization [facility] Address [address] [place] [address] Care Team Providers Care Local Company Tanker Driver Name Role Phone Unavailable Primary Care Provider Unavailabl e Encounter Details Date Type Department Care Team (Late st Contact Info) Description 11/09/2007 Historical Mammograp hy Encounter [facility] [address] [place] [address] Interface, See Report Social History [...] AM EDT Narrative 11/09/2007 11:40 AM EDT ?[facility] ? [address] ??[place], [place] [address] ? NAME: MICHAEL BOONE ? : ??74 ??MR#: [id number] ? LOC: ?? CO ? AGE: 36Y ?? Pt type: CO ?Exam Date: 11/08/840 ? SEX: F ?? AN#:[id number] ?Ck-in#: [id number] ? [facility] GROSS ? [address] ? [place] ?[place] ?[address] ? Chk-in # ?? Order ?Exam ?[id number] ?? 0001 ? [id number] ??BC MAMM DIAG BILAT DIG PNL ? Ord Diag: GALATORRHEA ?[id number] ?? 0002 ? [id number] ??BC MAMM OUTSIDE FILM DIGITIZED ? Ord [...] DIGITAL MAMMOGRAM: ?? COMPARISON USED: ??05/11/07 from [facility], digitized. ?? TECHNIQUE: ??CC and MLO [...] FINAL ?CONTINUED ?Page ??1 ? RADIOLOGY REPORT ?[facility] ? [address] ??[place], [place] [address] ? NAME: MICHAEL BOONE ? : ??74 ??MR#: [id number] ? LOC: ?? CO ? AGE: 36Y ?? Pt type: CO ?Exam Date: 11/09/07840 ? SEX: F ?? AN#:[id number] ?Ck-in#: [id number] ? H[facility]ha GROSS ? [address] ? [place] ?[place] ?[id number] ? Checkin-Exam Code Summary ? [phone] patient and she was given a report in lay terminology. ?/READ BY/ GODWIN L ATKINS ?/Released By/ GODWIN L ATKINS ?Released By Date/Time: ??11/09/071136 ?Glass Cutter Hand: ??JBW ? FINAL ? Page ??2 ? RADIOLOGY REPORT us See Report Interface IMG MAMMOGRAPHY ORDERABLES Final Result documented in this encounter Visit Diagnoses Not on filedocumented in this encounter
--- OUTSIDE RECORDS SUMMARY | 2024-03-22 10:16 | XMS_ITS | Encounter Summary ---
Author Organization [facility] Address [address] [place] [address] Care Team Providers Care Film Producer Name Role Phone Unavailable Primary Care Provider Unavailabl e Encounter Details Date Type Department Care Team (Late st Contact Info) Description 05/08/2014 Legacy AEHR Vitals Encounter [facility] OUTPATIENT CONVERSIONS [address] [place] [address] Provider, MD Santana [address] [place], [place] [id number] Social History Tobacco Use Types Packs/Day Years [...]
== END 2024-03-17 13:10 | disposition home or self-care (01) ==
LOC: RT 10:41 → RAD 11:27
PROVIDERS: PCP Physician Assistant; Visit Provider Internal Medicine
DX: R94.31 Abnormal electrocardiogram [ECG] [EKG] (principal); R07.9 Chest pain, unspecified; I10 Essential (primary) hypertension
CPT/HCPCS: 75574; 93306; Q9967

== ENCOUNTER 2024-08-02 13:48 | Outpatient (CLI) | payer OTHER, SELFPAY ==
[2024-08-02 14:25] LABS: Basophils % 0.5 % (0.1-2.0); Eosinophils # 0.1 Kmm3 (0.0-0.4); Eosinophils % 1.3 % (0.1-12.0); Hematocrit 39.6 % (37.0-47.0); Hemoglobin 13.2 g/dL (12.2-16.2); Lymphocytes # 1.8 K/mm3 (0.7-4.5); Lymphocytes % 21.7 % (10-50); Mean Corpuscular HGB Conc 33.3 g/dL (31.8-35.4); Mean Corpuscular Hemoglobin 29.5 pg (27.0-31.2); Mean Corpuscular Volume 88.6 fl (81-99); Mean Platelet Volume 9.3 fl (7.4-10.4); Monocytes # 0.4 K/mm3 (0.1-1.0); Monocytes % 4.9 % (1.7-9.3); Neutrophils # 6.1 K/mm3 (1.8-7.8); Neutrophils % 71.5 % (37.0-80.0); Nucleated Red Blood Cells # 0 10^3/uL; Nucleated Red Blood Cells % 0 %; Platelet Count 272 K/mm3 (142-424); Red Blood Count 4.47 M/mm3 (4.20-5.40); Red Cell Distribution Width 13.5 % (11.5-17.5); Red Cell Distribution Width-SD 44.1 fL; White Blood Count 8.5 K/mm3 (4.8-10.8)
[2024-08-02 14:48] LABS: Alanine Aminotransferase 22 U/L (12-78); Albumin Level 4.2 g/dl (3.5-5.0); Albumin/Globulin Ratio 1.6 (1.1-1.8); Alkaline Phosphatase 96 U/L (38-126); Anion Gap 7.8 mEq/L (5-15); Aspartate Amino Transferase 26 U/L (14-36); Bilirubin,Total 0.6 mg/dl (0.2-1.3); Blood Urea Nitrogen 7 mg/dl (7-17); Calcium 9.7 mg/dl (8.4-10.2); Carbon Dioxide 32 mmol/L (22.0-30.0); Chloride 107 mmol/L (98-107); Chol/HDL Ratio 3.5 (1-3.5); Cholesterol 196 mg/dl (140-200); Estimated Glomerular Filt Rate 76 ml/min (>60); GFR (African American) 92 ML/MIN (>60); Globulin 2.6 g/dL (1.3-3.2); Glucose 98 mg/dl (74-100); Glucose,Fasting 98 mg/dl (74-100); HDL Cholesterol 56 mg/dl (40-60); Potassium 4.8 mmoL/L (3.5-5.1); Sodium 142 mmol/L (136-145); Total Protein,Serum 6.8 g/dl (6.3-8.2); Triglycerides 96 mg/dl (30-150); VLDL Cholesterol 19 mg/dL (0-40)
[2024-08-02 15:02] LABS: 25-OH Vitamin D, Total 38.7 ng/mL (30-100)
[2024-08-02 15:06] LABS: Hemoglobin A1C 5.1 % (4.0-6.0)
[2024-08-02 15:11] LABS: Iron 102 ug/dL (37-170)
[2024-08-02 15:17] LABS: Thyroid Stimulating Hormone 1.28 uIU/mL (0.465-4.68)
[2024-08-02 15:36] LABS: Vitamin B12 838 pg/mL (239-931)
[2024-08-02 16:57] LABS: Direct LDL Cholesterol 101.76 mg/dL (100-129)
== END 2024-08-02 23:59 | disposition home or self-care (01) ==
LOC: LAB 13:52
PROVIDERS: PCP Physician Assistant; Visit Provider Nurse Practitioner Psychiatric/Mental Health
DX: F25.0 Schizoaffective disorder, bipolar type (principal)
CPT/HCPCS: 36415; 80053; 80061; 82306; 82607; 82947; 83036; 83540; 84443; 85025

== ENCOUNTER 2024-12-27 10:44 | Outpatient (CLI) | payer OTHER, SELFPAY ==
--- NOTE | 2024-12-27 10:48 | CT_ITS ---
FINAL REPORT TECHNIQUE: Thin section axial images are obtained through the abdomen and pelvis after intravenous contrast. Reconstruction images were obtained from the axial data. Exam was performed using dose reduction techniques. CLINICAL HISTORY: EPIGASTRIC PAIN COMPARISON: 12/02/2022 FINDINGS: LUNG BASES: Lung bases are clear. Heart size is normal. LIVER: Homogeneous. No focal lesion. GALLBLADDER/BILIARY SYSTEM: Gallbladder is present. No gallstones. No biliary dilatation. SPLEEN: Unremarkable. PANCREAS: Unremarkable. ADRENALS: Unremarkable. KIDNEYS/URETERS/BLADDER: There is a possible, tiny nonobstructing left renal stone. There is no hydronephrosis or mass. Unremarkable urinary bladder. GI TRACT: No small bowel obstruction or dilatation. Appendix is not visualized. There are no secondary findings of appendicitis. No acute colon abnormality. PELVIC ORGANS: Uterus is absent. LYMPH NODES/RETROPERITONEUM/MESENTERY: No lymphadenopathy. No abdominal aortic aneurysm. ABDOMINAL WALL: The abdominal wall is intact. FREE FLUID: No ascites. BONES: No acute osseous abnormality. IMPRESSION: No acute abnormality of the abdomen or pelvis. Reviewed, Interpreted and Dictated by Ira Elkins MD Transcribed by Ynes Henry Authenticated and [facility]
[2024-12-27] MEDS: SODIUM CHLORIDE 0.9% 10ML SYR (RAD ONLY) 10 ML IV (11:14)
[2024-12-27] MEDS: IOPAMIDOL-370 (76%);100ML BOTTLE 75 ML IV (11:15)
== END 2024-12-27 23:59 | disposition home or self-care (01) ==
LOC: RAD 10:45
PROVIDERS: PCP Physician Assistant; Visit Provider Physician Assistant
DX: R10.13 Epigastric pain (principal)
CPT/HCPCS: 74177; Q9967

== ENCOUNTER 2025-01-12 10:41 | Day surgery (SDC) | payer OTHER, SELFPAY ==
--- NOTE | 2025-01-06 11:11 | EXP.HP ---
History of Present Illness *Admission Date: 01/12/25 *History of present illness: Mrs. Boone is a 54-year-old female who is here for diagnostic EGD and colonoscopy. She has had epigastric abdominal pain and abnormal weight loss. The patient does report pain in the left side/left upper quadrant that radiates up into the chest and neck and has lost 20 pounds recently. She has lost her appetite. This has been going on for several months. She also reports having difficulty passing stool. The patient does take MiraLAX she does have a prior history of a rectal polyp. The patient's CAT scan of the abdomen and pelvis on 12/27/2022 showed no acute abnormalities. The examination is deemed medically necessary for diagnostic EGD and colonoscopy. The patient has been seen, interviewed and examined prior to the procedure by both myself and the anesthesia provider. [facility] Disclaimer: The information contained in this section may have been updated after the patient was seen, as this information can be updated by other users. Medical History Giant gastric ulcer Hiatal hernia Tympanosclerosis, bilateral Eustachian tube dysfunction Abnormal electrocardiogram [ECG] [EKG] Bilateral otitis media Bipolar disorder Pseudotumor cerebri Ganglion cyst Breast cancer GERD (gastroesophageal reflux disease) Hyperlipidemia Hypertension COPD (chronic obstructive pulmonary disease) Asthma Depression Schizoaffective disorder Bipolar disorder Surgical History H/O excision of ganglion cyst S/P colonoscopic polypectomy History of sinus surgery Hx of appendectomy H/O: hysterectomy Family History Other Asthma Bipolar disorder Breast cancer COPD (chronic obstructive pulmonary disease) Depression GERD (gastroesophageal reflux disease) Heart disease Hyperlipidemia Hypertension Schizoaffective disorder Social History Smoking Status: Current every day smoker tobacco type: cigarettes packs per day: 1 second hand exposure: No alcohol intake: never substance use type: denies use current occupational status: employed Travel in the last 8 weeks?: None household members: family housing: house Have you lived/traveled outside US in past 30 days?: No Contact w/someone who lives/traveled outside US past 30 days?: No Exposure to someone with infectious disease in past 14 days?: No Do you have a fever (greater than 100.4 F or 38 C)?: No Have you tested positive for COVID-19?: No Exposed to someone with COVID-19 in past 14 days?: No Do you have a sore throat?: No Do you have a cough?: No Do you have any weakness?: No Do you have any diarrhea?: No Are you experiencing any unusual bleeding?: No Do you have any muscle aches/pain?: No Do you have any abdominal pain?: No Are you experiencing loss of taste or smell?: No Other Medical History Have you received the Flu Vaccine for this season: No Have you received the Pneumonia Vaccine: No Review of Systems Review of Systems Review of systems (narrative): Negative *Cardiovascular Comments: Negative *Gastrointestinal Comments: Negative *Genitourinary Comments: Negative *Musculoskeletal Comments: Negative *Neurologic Comments: Negative Meds Home Medications and Allergies Home Medications ?Medication ?Instructions ?Recorded ?Confirmed ?Type doxepin 75 mg capsule 75 mg PO QHS #90 caps 11/22/18 01/10/25 Rx ranitidine HCl 150 mg capsule 150 mg PO BID #180 caps 11/22/18 01/10/25 Rx prazosin 1 mg capsule 1 mg PO HS 06/13/21 01/10/25 History citalopram 10 mg tablet (Celexa) 10 mg PO DAILY 08/19/21 01/10/25 History lansoprazole 30 mg capsule,delayed See Rx Instructions .Route 11/21/22 01/10/25 Rx release .COMPLEX #90 caps cholecalciferol (vitamin D3) 25 See Rx Instructions .Route 04/10/23 01/10/25 Rx mcg (1,000 unit) capsule (Vitamin .COMPLEX #90 caps D3) loratadine 10 mg tablet See Rx Instructions .Route 06/09/23 01/10/25 Rx .COMPLEX #90 tabs lamotrigine 200 mg tablet,extended 150 mg PO BID 08/20/23 01/10/25 History release 24 hr diclofenac sodium 75 mg See Rx Instructions .Route 08/27/23 01/10/25 Rx tablet,delayed release .COMPLEX #60 tabs polyethylene glycol 3350 17 See Rx Instructions .Route 09/04/23 08/02/24 Rx gram/dose oral powder .COMPLEX #510 grams albuterol sulfate 90 mcg/actuation See Rx Instructions .Route 10/06/23 01/10/25 Rx aerosol inhaler (Ventolin HFA) .COMPLEX #18 grams fluticasone propionate 50 See Rx Instructions .Route 10/06/23 01/10/25 Rx mcg/actuation nasal .COMPLEX #16 grams spray,suspension sucralfate 1 gram tablet See Rx Instructions .Route 10/06/23 01/10/25 Rx .COMPLEX #180 tabs atorvastatin 40 mg tablet See Rx Instructions .Route 10/27/23 01/12/25 Rx .COMPLEX #90 tabs cyanocobalamin (vitamin B-12) 5,000 mcg PO DAILY #90 caps 11/24/23 01/10/25 Rx 5,000 mcg capsule ergocalciferol (vitamin D2) 1,250 See Rx Instructions .Route 11/24/23 01/10/25 Rx mcg (50,000 unit) capsule (Vitamin .COMPLEX #14 caps D2) azelastine 137 mcg (0.1 %) nasal 2 spray intranasal BID #30 mL 08/02/24 01/10/25 Rx spray sodium,potassium,mag sulfates 17.5 See Rx Instructions PO .COMPLEX 12/29/24 Rx gram-3.13 gram-1.6 gram oral soln #354 mL (Suprep Bowel Prep Kit) hydroxyzine HCl 25 mg tablet 25 mg PO BID 01/10/25 01/10/25 History olanzapine 10 mg tablet 10 mg PO HS 01/10/25 01/10/25 History pregabalin 25 mg capsule (Lyrica) 25 mg PO BID 01/10/25 01/10/25 History New Prescriptions to Start Prescriptions: Allergies Allergy/AdvReac Type Severity Reaction Status Date / Time acetaminophen (From LORTAB) Allergy Unknown Other Verified 01/12/25 11:01 hydrocodone (From LORTAB) Allergy Unknown Other Verified 01/12/25 11:01 ibuprofen (IBUPROFEN) Allergy Unknown Other Verified 01/12/25 11:01 amoxicillin (From Augmentin) AdvReac Intermediate Abdominal Verified 01/12/25 11:01 Pain clavulanic acid (From AdvReac Intermediate Abdominal Verified 01/12/25 11:01 Augmentin) Pain cefdinir AdvReac Vomiting Verified 01/12/25 11:01 Exam *Routine HEENT Exam Head: Present normocephalic Eye: Present EOMI and PERRL ENT: Present mucous membranes moist *Routine Neck Exam Neck: Present supple *Routine Respiratory Exam Respiratory: Present CTA bilaterally *Routine Cardiovascular Exam Cardiovascular: Present RRR *Routine Abdominal Exam Abdominal: Present soft and normoactive bowel sounds; Absent tenderness *Routine Rectal Exam Rectal:: deferred *Routine Genitalia Exam Genitalia:: deferred *Routine Extremities Exam Extremities: Absent cyanosis, clubbing or edema *Routine Skin Exam Skin: Present warm; Absent rash *Routine Neurological Exam Neurological: Present alert and oriented X3 Assessment and Plan *Assessment and plan (1) Left upper quadrant abdominal pain: Status: Acute Category: Medical Code(s): R10.12 - (2) Chest pain: Status: Acute Category: Medical Code(s): R07.9 - (3) Personal history of colon polyps, unspecified: Status: Acute Category: Medical Code(s): Z86.0100 - (4) Constipation: Status: Acute Category: Medical Code(s): K59.00 - Constipation, unspecified (5) Abnormal weight loss: Status: Acute Category: Medical Code(s): R63.4 - (6) Loss of appetite: Status: Acute Category: Medical Code(s): R63.0 - Plan A/P: 1. Left upper quadrant abdominal pain radiating into the chest with abnormal weight loss, loss of appetite and personal history of colon polyps is the preprocedural diagnosis. The patient will be anesthetized/sedated using MAC sedation. The patient has been seen and examined. Cardiac and lung assessment prior to the examination is stable. Proceed with planned diagnostic EGD and colonoscopy.
--- NOTE | 2025-01-11 07:57 | HMH.PROCNOTE ---
[facility] Procedure Note Date: 01/12/25 Time: 11:58 Procedure Note:: Upper Endoscopy Procedure Report: Esophagogastroduodenoscopy with cold biopsies Endoscopost: Zia Jensen II, MD Referring Physician: Daysi Michael PA-C Date of Procedure: January 12, 2025 Equipment: Olympus GIF-1100 standard upper endoscope Sedation: MAC sedation Indications: Mrs. Boone is a 54-year-old female who is here for diagnostic EGD and colonoscopy. She has had epigastric abdominal pain and abnormal weight loss. The patient does report pain in the left side/left upper quadrant that radiates up into the chest and neck and has lost 20 pounds recently. The patient does report some belching but no bloating. She does get some heartburn. She also reports some early satiety but no nausea. She has had no dysphagia. She has lost her appetite. This has been going on for several months. She also reports having difficulty passing stool. The patient does take MiraLAX. She does have a prior history of a rectal polyp. The patient's CAT scan of the abdomen and pelvis on 12/27/2022 showed no acute abnormalities. The examination is deemed medically necessary for diagnostic EGD and colonoscopy. Procedure: Prior to the procedure, a history and physical exam was performed, and patient's medications and allergies were reviewed. The risks, benefits and alternatives of the sedation and procedure were discussed with the patient. All questions were answered and informed consent was obtained. The patient was brought to the procedure room. Patient identification and proposed procedure were verified by the physician and the nurse. The patient was placed in a left lateral decubitus position and the scope was passed under direct vision. Throughout the procedure, the patient's blood pressure, pulse, and oxygen saturations were monitored continuously. The upper GI endoscopy was accomplished without difficulty. The patient tolerated the procedure well. Findings: The scope was passed directly into the upper esophagus and advanced to the third portion of the duodenum. The post bulbar duodenum, ampulla and duodenal bulb were normal with normal mucosa and conniventes. 2 biopsies were taken from the second portion of the duodenum for the disaccharidase assay. The scope was withdrawn through a normal duodenal bulb and pylorus into the stomach. There was bile reflux with mild linear reactive gastropathy of the antrum. The body and fundus of the stomach were normal. Upon retroflexion there was no hiatal hernia. Cold biopsies were taken from the antrum. The scope was then withdrawn into the esophagus. There was no evidence of reflux esophagitis or Mcallister's. There were tertiary contractions and evidence of mild esophageal dysmotility. The remainder of the esophageal mucosa was normal. Impression: 1. Nonerosive GERD with mild esophageal dysmotility 2. Bile reflux with mild linear reactive gastropathy of antrum Plan: I will follow-up the biopsies and disaccharidase assay. The patient does have functional dyspepsia and I do feel that most of her symptoms of dyspepsia are related to and driven by lower intestinal gas pressure gradients/high gas pressure buildup resulting in backflow of bile and peptic fluid from the duodenum into the stomach (duodenal reflux). This gas production (carbon dioxide, hydrogen, methane, etc.) from the lower intestinal tract is the byproduct of colonic bacterial fermentation. This colonic fermentation occurs when there is more carbohydrate (dietary starches, sugars and high residue plant fiber) substrate that does not get digested (in the middle or small intestine) or occurs when there is colonic fecal buildup and colonic bacterial overgrowth. This indeed leads to bloating and the gas pressure buildup with gas pressure gradients that do drive backflow and dyspepsia. I will proceed with diagnostic colonoscopy.
--- NOTE | 2025-01-11 07:57 | HMH.PROCNOTE ---
[facility] Procedure Note Date: 01/12/25 Time: 12:15 Procedure Note:: Colonoscopy Procedure Report: Colonoscopy with cold snare polypectomy Endoscopist: Zia Jensen II, MD Referring physician: Daysi Michael PA-C Date of Procedure: January 12, 2025 Equipment: Olympus [id number] adult colonoscope Sedation: MAC sedation Indication: Mrs. Boone is a 54-year-old female who is here for diagnostic colonoscopy. The patient does report pain in the left side/left upper quadrant that radiates up into the chest and neck and has lost 20 pounds recently. She has lost her appetite. This has been going on for several months. She also reports having difficulty passing stool. The patient does take MiraLAX. The patient reports no rectal bleeding or family history of colon cancer. She does have a prior history of a rectal polyp. The patient's CAT scan of the abdomen and pelvis on 12/27/2022 showed no acute abnormalities. The examination is deemed medically necessary for diagnostic EGD and colonoscopy. Procedure: Prior to the procedure, a history and physical exam was performed, and patient's medications and allergies were reviewed. The risks, benefits and alternatives of the sedation and procedure were discussed with the patient. All questions were answered and informed consent was obtained. The patient was brought to the procedure room. Patient identification and proposed procedure were verified by the physician and the nurse. The patient was placed in a left lateral decubitus position and the scope was passed under direct vision. Throughout the procedure, the patient's blood pressure, pulse, and oxygen saturations were monitored continuously. The colonoscopy was accomplished without difficulty. The patient tolerated the procedure well. Findings: On digital rectal examination there was normal rectal tone. There were no external hemorrhoids. The colonoscope was introduced through the anal canal to the rectum and advanced to the cecum. The ileocecal valve and appendiceal orifice were identified. The scope was advanced a short distance into the ileum which appeared grossly normal. The scope was then withdrawn into the colon. There were 4 polyps (ascending x 2 (6 and 8 mm) and transverse x 2 (4 and 4 mm)). These were all removed via cold snare polypectomy. The remaining cecum, ascending, transverse, descending, sigmoid and rectum were grossly normal. There were no other mucosal abnormalities identified. Upon retroflexion within the rectum there were grade 1-2 internal hemorrhoids. The preparation was fair to poor in the right colon with a lot of brown liquid stool. The cecal time was 12 minutes. Impression: 1. Colonic polyps x 4 Plan: I will follow-up the polyp histology and recommend repeat screening/surveillance colonoscopy again in 5 years. 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 We will discuss treatment options.
[2025-01-12 10:55] VITALS: BMI 21.9
[2025-01-12] MEDS: LACTATED RINGERS 1000ML 1,000 ML 50 ML IV (10:56)
[2025-01-12 11:02] VITALS: BP 115/83; PULSE 85; RESP 18; TEMP 36.1; O2SAT 98
--- NOTE | 2025-01-12 11:49 | EXP.ANES.CKL ---
[facility] Disclaimer: The information contained in this section may have been updated after the patient was seen, as this information can be updated by other users. Medical History Giant gastric ulcer Hiatal hernia Tympanosclerosis, bilateral Eustachian tube dysfunction Abnormal electrocardiogram [ECG] [EKG] Bilateral otitis media Bipolar disorder Pseudotumor cerebri Ganglion cyst Breast cancer GERD (gastroesophageal reflux disease) Hyperlipidemia Hypertension COPD (chronic obstructive pulmonary disease) Asthma Depression Schizoaffective disorder Bipolar disorder Surgical History H/O excision of ganglion cyst S/P colonoscopic polypectomy History of sinus surgery Hx of appendectomy H/O: hysterectomy Family History Other Asthma Bipolar disorder Breast cancer COPD (chronic obstructive pulmonary disease) Depression GERD (gastroesophageal reflux disease) Heart disease Hyperlipidemia Hypertension Schizoaffective disorder Social History Smoking Status: Current every day smoker tobacco type: cigarettes packs per day: 1 second hand exposure: No alcohol intake: never substance use type: denies use current occupational status: employed Travel in the last 8 weeks?: None household members: family housing: house Have you lived/traveled outside US in past 30 days?: No Contact w/someone who lives/traveled outside US past 30 days?: No Exposure to someone with infectious disease in past 14 days?: No Do you have a fever (greater than 100.4 F or 38 C)?: No Have you tested positive for COVID-19?: No Exposed to someone with COVID-19 in past 14 days?: No Do you have a sore throat?: No Do you have a cough?: No Do you have any weakness?: No Do you have any diarrhea?: No Are you experiencing any unusual bleeding?: No Do you have any muscle aches/pain?: No Do you have any abdominal pain?: No Are you experiencing loss of taste or smell?: No [facility] Anesthesia Checklist Patient Identification Patient Identification: Arm Band and Verbal (Name & ) Structural Data Admitted From: Home Planned Operative Procedure/s: EGD + Colonoscopy Consent for Planned Operative Procedure(s) Verified: Yes Verified Documents: Surgical Consent NPO Status Verified Time NPO: 00:00 Additional verifications Anesthesia Reactions: No Hx Blood Transfusions: No Blood Transfusion Reaction: No Airway Assessment Mallampati Score:: Class II C-Spine Mobility Assessed: Yes TMJ Mobility Assessed: Yes Dentition: Good Dentition Neurological Assessment Level of Consciousness: Awake, Alert and Appropriate Hx Seizures: No Numbness or tingling in extremities: No Anesthesia Plan Anesthesia Risk discussed: Yes Anesthesia Plan: Verified ASA Class: II Anesthesia Type: MAC
[2025-01-12 12:19] VITALS: BP 107/63; PULSE 79; RESP 18; TEMP 36.1; O2SAT 98
[2025-01-12 12:29] VITALS: BP 121/81; PULSE 80; RESP 18; O2SAT 100
[2025-01-12 12:39] VITALS: BP 120/80; PULSE 68; RESP 18; O2SAT 100
[2025-01-12 12:49] VITALS: BP 145/74; PULSE 65; RESP 18; O2SAT 100
[2025-01-12 13:20] VITALS: BP 135/86; PULSE 68; RESP 18; TEMP 36.1; O2SAT 100
[2025-01-18 12:15] LABS: Interpretation Notes (.); Lactase 42.26 (>/= 14.0); Maltase 292.13 (>/= 110.0); Palatinase 16.82 (>/= 8.5); Reference Notes (.); Sucrase 67.28 (>/= 25.0)
== END 2025-01-12 13:20 | disposition home or self-care (01) ==
PROVIDERS: PCP Physician Assistant; Visit Provider Internal Medicine Gastroenterology
PROC: 0DJ08ZZ Inspection of Upper Intestinal Tract, Via Natural or Artificial Opening Endoscopic (ICD-10-PCS; CPT 45378; principal; 2025-01-12 12:30)
DX: D12.3 Benign neoplasm of transverse colon (principal); D12.2 Benign neoplasm of ascending colon; K64.0 First degree hemorrhoids; K64.1 Second degree hemorrhoids; K31.89 Other diseases of stomach and duodenum; K22.4 Dyskinesia of esophagus; K59.00 Constipation, unspecified; K21.9 Gastro-esophageal reflux disease without esophagitis; F17.210 Nicotine dependence, cigarettes, uncomplicated; I10 Essential (primary) hypertension; E78.5 Hyperlipidemia, unspecified; F25.0 Schizoaffective disorder, bipolar type; J44.89 Other specified chronic obstructive pulmonary disease; Z86.0100 Personal history of colon polyps, unspecified; Z88.6 Allergy status to analgesic agent; Z88.1 Allergy status to other antibiotic agents
CPT/HCPCS: 43239; 45385; 82657; J2003; J2704; J7120

== ENCOUNTER 2025-03-11 15:42 | Emergency (ER) | payer OTHER, SELFPAY ==
[2025-03-11 15:44] VITALS: BP 164/93; PULSE 88; RESP 18; TEMP 36.9; O2SAT 99; BMI 21.9
[2025-03-11 15:47] VITALS: BP 164/93; PULSE 84; O2SAT 100
--- OUTSIDE RECORDS SUMMARY | 2025-03-11 15:49 | XMS_ITS | Data Portability ---
Author Organization [facility] Address [address] [place] [address] Assessment No assessment recorded. Plan of Treatment Reminders Order Date Submit Date Provider Last Modified By Organization Details Last Modified Time Details Appointments None recorded. Lab amylase + lipase, serum 2024 025 GIULIANO [facility]), [address] [place], [address], 5 09:06:54 CBC w/ auto diff 2024 025 GIULIANO [facility] ([place]), [address] [place], [address], 5 09:06:52 comprehensi ve metabolic 1998 panel, serum or plasma 2024 025 [facility] [address] [place], [address], 5 09:06:53 TSH, ultra-sensi tive, serum 2024 025 GIULIANO [facility] ([place]), [address] [place], [address], 5 09:06:55 vitamin D, 25-hydroxy, total, serum 2024 025 [facility] [address] [place], [address], 5 09:06:55 lipid panel, serum 2024 025 GIULIANO [facility] ([place]), [address], [place], [address], 5 09:06:54 Referral EGD referral 2024 025 GIULIANO Jensen MD, [address], [place], [address], 5 04:09:07 otolaryngol ogist referral - first available appt 2024 025 GIULIANO [facility], [address], [place], [address], 5 15:42:37 cardiologis t referral 2023 024 GIULIANO Ruiz MD, [address], [place], [address], 4 11:18:56 Procedures colonoscopy procedure (PROC) 2024 025 GIULIANO Jensen MD, [address], [place], [address], 5 13:53:18 colonoscopy procedure (PROC) - first available appt 2023 024 rl Jensen MD, [address], [place], [address], 5 13:53:18 Surgeries None recorded. Imaging CT, abdomen + pelvis, w/ contrast 2024 025 [facility] ([facility]), [address], [place], [address], 5 10:10:36 electrocard iogram 2023 024 [email or web address] Not available 4 10:20:24 Medication Orders Voquezna 20 mg tablet 2024 025 [facility], [address] [place] [address], CAM[place] Oswald, [id number], 5 14:19:41 clindamycin HCl 300 mg capsule 2024 025 [facility], [address] [place] [address], CAMRON Oswald, [id number], 5 13:39:29 amoxicillin 875 mg-potassiu m clavulanate 125 mg tablet 2024 025 [facility], [address] [place] [address], CAMRON Oswald, [id number], 5 11:07:59 prednisone 20 mg tablet 2024 025 [facility], [address] [place] [address], CAMRON Oswald, [id number], 5 11:03:08 Ciprodex 0.3 %-0.1 % ear drops,suspe nsion 2024 025 [facility], [address] [place] [address], CAMRON Oswald, [id number], 5 11:06:14 cefdinir 300 mg capsule 2024 025 [facility], [address] [place] [address], CAMRON Oswald, [id number], 5 11:06:13 Patient TargetsNo targets recorded. 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 Referral fo r Acute bilateral otitis media first available appt Referring Physician: Daysi Michael [facility] Dorothy, Encounter Date: 07/19/2024 EGD Referral for Epigastric pain Referring Physician: Daysi Michael [facility] Dorothy, Encounter Date: 11/25/2024 Results Created Date Observation Date Name Description Value Unit Range Abnormal Flag Note LastModifiedBy Organization Detail LastModifiedTime 11/26/1911/26/2024 CBC WITH DIFFE RENTI AL/PL ATELE T WBC 7.6 x10e3 /uL 3.4-10 .8 normal Not Available [facility] ([facility]) [address] [place], [address], 11/28/2024 09:06:52 11/26/1911/26/2024 CBC WITH DIFFE RENTI AL/PL ATELE T RBC 4.31 x10e6 /uL 3.77-5 .28 normal Not Available [facility] ([facility]) [address] [place], [address], 11/28/2024 09:06:52 11/26/1911/26/2024 CBC WITH DIFFE RENTI AL/PL ATELE T hemoglobin 12.8 g/dL 11.1-1 5.9 normal Not Available [facility] ([facility]) [address] [place], [address], 11/28/2024 09:06:52 11/26/1911/26/2024 CBC WITH DIFFE RENTI AL/PL ATELE T hematocrit 39.7 % 34.0-4 6.6 normal Not Available [facility] ([facility]) [address] [place], [address], 11/28/2024 09:06:52 11/26/1911/26/2024 CBC WITH DIFFE RENTI AL/PL ATELE T MCV 92 fL 79-97 normal Not Available [facility] ([facility]) [address] [facility], [place], [address], 11/28/2024 09:06:52 11/26/1911/26/2024 CBC WITH DIFFE RENTI AL/PL ATELE T MCH 29.7 pg 26.6-3 3.0 normal Not Available [facility] ([facility]) [address] [facility], [place], [address], 11/28/2024 09:06:52 11/26/1911/26/2024 CBC WITH DIFFE RENTI AL/PL ATELE T MCHC 32.2 g/dL 31.5-3 5.7 normal Not Available [facility] ([facility]) [address] [place], [address], 11/28/2024 09:06:52 11/26/1911/26/2024 CBC WITH DIFFE RENTI AL/PL ATELE T RDW 12.7 % 11.7-1 5.4 Not Available [facility] ([facility]) [address] [place], [address], 11/28/2024 09:06:52 11/26/1911/26/2024 CBC WITH DIFFE RENTI AL/PL ATELE T platelets 239 x10e3 /uL 150-45 0 normal Not Available [facility] ([facility]) [address] [facility], [place], [address], 11/28/2024 09:06:52 11/26/1911/26/2024 CBC WITH DIFFE RENTI AL/PL ATELE T neutrophils 72 % not estab. normal Not Available [facility] ([facility]) [address] [facility], [place], [address], 11/28/2024 09:06:52 11/26/192025 CBC WITH DIFFE RENTI AL/PL ATELE T lymphs 21 % not estab. normal Not Available [facility] ([facility]) [address] [place], [address], 11/28/2024 09:06:52 11/26/1911/26/2024 CBC WITH DIFFE RENTI AL/PL ATELE T monocytes 5 % not estab. normal Not Available [facility] ([facility]) [address] [place], [address], 11/28/2024 09:06:52 11/26/1911/26/2024 CBC WITH DIFFE RENTI AL/PL ATELE T eos 1 % not estab. normal Not Available [facility] ([facility]) [address] [facility], [place], [address], 11/28/2024 09:06:52 11/26/1911/26/2024 CBC WITH DIFFE RENTI AL/PL ATELE T basos 1 % not estab. normal Not Available [facility] ([facility]) [address] [place], [address], 11/28/2024 09:06:52 11/26/1911/26/2024 CBC WITH DIFFE RENTI AL/PL ATELE T immature cells CORPORATE DIRECTOR TALENT ASSESSMENT Not Available [facility] ([facility]) [address] [place], [address], 11/28/2024 09:06:52 11/26/1911/26/2024 CBC WITH DIFFE RENTI AL/PL ATELE T neutrophils (absolute) 5.5 x10e3 /uL 1.4-7. 0 normal Not Available [facility] ([facility]) [address] [place], [address], 11/28/2024 09:06:52 11/26/1911/26/2024 CBC WITH DIFFE RENTI AL/PL ATELE T lymphs (absolute) 1.6 x10e3 /uL 0.7-3. 1 normal Not Available [facility] ([facility]) [address] [facility], [place], [address], 11/28/2024 09:06:52 11/26/1911/26/2024 CBC WITH DIFFE RENTI AL/PL ATELE T monocytes(ab solute) 0.4 x10e3 /uL 0.1-0. 9 normal Not Available [facility] ([facility]) [address] [facility], [place], [address], 11/28/2024 09:06:52 11/26/1911/26/2024 CBC WITH DIFFE RENTI AL/PL ATELE T eos (absolute) 0.1 x10e3 /uL 0.0-0. 4 normal Not Available [facility] ([facility]) [address] [facility], [place], [address], 11/28/2024 09:06:52 11/26/1911/26/2024 CBC WITH DIFFE RENTI AL/PL ATELE T baso (absolute) 0.1 x10e3 /uL 0.0-0. 2 normal Not Available [facility] ([facility]) [address] [facility], [place], [address], 11/28/2024 09:06:52 11/26/1911/26/2024 CBC WITH DIFFE RENTI AL/PL ATELE T immature granulocytes 0 % not estab. Not Available [facility] ([facility]) [address] [facility], [place], [address], 11/28/2024 09:06:52 11/26/1911/26/2024 CBC WITH DIFFE RENTI AL/PL ATELE T immature grans (abs) 0.0 x10e3 /uL 0.0-0. 1 Not Available [facility] ([facility]) [address] [facility], [place], [address], 11/28/2024 09:06:52 11/26/19 25 11/26/2024 CBC WITH DIFFE RENTI AL/PL ATELE T NRBC CORPORATE DIRECTOR TALENT ASSESSMENT Not Available [facility] ([facility]) [address] [facility] [place], [address], 11/28/2024 09:06:52 11/26/19 25 11/26/2024 CBC WITH DIFFE RENTI AL/PL ATELE T hematology comments: CORPORATE DIRECTOR TALENT ASSESSMENT Not Available [facility] ([facility]) [address] [facility], [place], [address], 11/28/2024 09:06:52 11/26/1911/26/2024 COMP. METAB OLIC PANEL (14) glucose 108 mg/dL 70-99 above high normal Not Available [facility] ([facility]) [address] [facility], [place], [address], 11/28/2024 09:06:53 11/26/1911/26/2024 COMP. METAB OLIC PANEL (14) BUN 6 mg/dL 6-24 normal Not Available [facility] ([facility]) [address] [facility] [place], [address], 11/28/2024 09:06:53 11/26/19 25 11/26/2024 COMP. METAB OLIC PANEL (14) creatinine 0.83 mg/dL 0.57-1 .00 normal Not Available [facility] ([facility]) [address] [facility], [place], [address], 11/28/2024 09:06:53 11/26/19 25 11/26/2024 COMP. METAB OLIC PANEL (14) eGFR 85 mL/mi n/1.7 3 >59 normal Not Available [facility] ([facility]) [address] [place], [address], 11/28/2024 09:06:53 11/26/19 25 11/26/2024 COMP. METAB OLIC PANEL (14) BUN/creatini ne ratio 7 9-23 below low normal Not Available [facility] ([facility]) [address] [place], [address], 11/28/2024 09:06:53 11/26/1911/26/2024 COMP. METAB OLIC PANEL (14) sodium 143 mmol/ L 134-14 4 normal Not Available [facility] ([facility]) [address] [place], [address], 11/28/2024 09:06:53 11/26/1911/26/2024 COMP. METAB OLIC PANEL (14) potassium 3.7 mmol/ L 3.5-5. 2 normal Not Available [facility] ([facility]) [address] [place], [address], 11/28/2024 09:06:53 11/26/19 25 11/26/2024 COMP. METAB OLIC PANEL (14) chloride 105 mmol/ L 96-106 normal Not Available [facility] ([facility]) [address] [place], [address], 11/28/2024 09:06:53 11/26/1911/26/2024 COMP. METAB OLIC PANEL (14) carbon dioxide, total 23 mmol/ L 20-29 normal Not Available [facility] ([facility]) [address] [place], [address], 11/28/2024 09:06:53 11/26/1911/26/2024 COMP. METAB OLIC PANEL (14) calcium 9.5 mg/dL 8.7-10 .2 normal Not Available [facility] ([facility]) [address] [place], [address], 11/28/2024 09:06:53 11/26/1911/26/2024 COMP. METAB OLIC PANEL (14) protein, total 6.8 g/dL 6.0-8. 5 normal Not Available [facility] ([facility]) [address] [place], [address], 11/28/2024 09:06:53 11/26/19 25 11/26/2024 COMP. METAB OLIC PANEL (14) albumin 4.6 g/dL 3.8-4. 9 normal Not Available [facility] ([facility]) [address] [place], [address], 11/28/2024 09:06:53 11/26/1911/26/2024 COMP. METAB OLIC PANEL (14) globulin, total 2.2 g/dL 1.5-4. 5 Not Available [facility] ([facility]) [address] [place], [address], 11/28/2024 09:06:53 11/26/19 25 11/26/2024 COMP. METAB OLIC PANEL (14) bilirubin, total 0.2 mg/dL 0.0-1. 2 normal Not Available [facility] ([facility]) [address] [place], [address], 11/28/2024 09:06:53 11/26/1911/26/2024 COMP. METAB OLIC PANEL (14) alkaline phosphatase 96 IU/L 44-121 normal Not Available [facility] ([facility]) [address] [place], [address], 11/28/2024 09:06:53 11/26/1911/26/2024 COMP. METAB OLIC PANEL (14) AST (SGOT) 12 IU/L 0-40 normal Not Available [facility] ([facility]) [address] [place], [address], 11/28/2024 09:06:53 11/26/1911/26/2024 COMP. METAB OLIC PANEL (14) ALT (SGPT) 12 IU/L 0-32 normal Not Available [facility] ([facility]) [address] [place], [address], 11/28/2024 09:06:53 11/26/1911/27/2024 COMP. METAB OLIC PANEL (14) hemoglobin A1C 5.4 % 4.8-5. 6 normal Predi abete s: 5.7 - 6.4 Diabe jose: >6.4 Glyce luzma contr ol for adult s with diabe jose: <7.0 Not Available [facility] ([facility]) [address] [place], [address], 11/28/2024 09:06:53 11/26/1911/26/2024 LIPID PANEL cholesterol, total 196 mg/dL 100-19 9 normal Not Available [facility] ([facility]) [address] [place], [address], 11/28/2024 09:06:54 11/26/1911/26/2024 LIPID PANEL triglyceride s 85 mg/dL 0-149 normal Not Available [facility] ([facility]) [address] [place], [address], 11/28/2024 09:06:54 11/26/1911/26/2024 LIPID PANEL HDL cholesterol 47 mg/dL >39 normal Not Available [facility] ([facility]) [address] [place], [address], 11/28/2024 09:06:54 11/26/1911/26/2024 LIPID PANEL VLDL cholesterol john 15 mg/dL 5-40 Not Available [facility] ([facility]) [address] [place], [address], 11/28/2024 09:06:54 11/26/1911/26/2024 LIPID PANEL LDL chol calc ([facility]) 134 mg/dL 0-99 above high normal Not Available [facility] ([facility]) [address] [place], [address], 11/28/2024 09:06:54 11/26/1911/26/2024 LIPID PANEL LDL calc comment: CORPORATE DIRECTOR TALENT ASSESSMENT Not Available [facility] ([facility]) [address] [facility], [place], [address], 11/28/2024 09:06:54 11/26/1911/26/2024 MAURICE+L IPASE amylase 49 U/L 31-110 normal Not Available [facility] ([facility]) [address] [place], [address], 11/28/2024 09:06:54 11/26/1911/26/2024 MAURICE+L IPASE lipase 22 U/L 14-72 normal Not Available [facility] ([facility]) [address] [facility] [place], [address], 11/28/2024 09:06:54 11/26/1911/26/2024 TSH TSH 1.380 uIU/m L 0.450- 4.500 normal Not Available [facility] ([facility]) [address] [place], [address], 11/28/2024 09:06:55 11/26/1911/26/2024 VITAM IN D, 25-HY DROXY vitamin D, 25-hydroxy 33.4 NG/mL 30.0-1 00.0 Vitam in D defic iency has been defin ed by the Insti tute of Medic ine and an Endoc rine Socie ty pract ice guide line as a level of serum 25-OH vitam in D less than 20 ng/mL (1,2) . The Endoc rine Socie ty went on to furth er defin e vitam in D insuf ficie ncy as a level betwe en 21 and 29 ng/mL (2). 1. IOM (Inst itute of Medic ine). 2010. Dieta ry refer ence intak es for calci um and D. Elly mosley DC: The Natio nal [facility] Press . 2. Girma lopez MF, Bintavo ey [place], Erika off-F errar i ROQUE, et al. Evalu ation , treat ment, and preve ntion of vitam in D defic iency : an Endoc rine Socie ty clini john pract ice guide line. JCEM. 2010; 96(7) :1911 -30. Not Available [facility] ([facility]) [address] [facility], [place], [address], 11/28/2024 09:06:55 11/26/1911/28/2024 HEMOG LOBIN A1C hemoglobin A1C COMMEN T % Dupli kalina proce dure order ed. Predi abete s: 5.7 - 6.4 Diabe jose: >6.4 Glyce luzma contr ol for adult s with diabe jose: <7.0 Not Available [facility] ([facility]) [address] [facility], [place], [address], 11/28/2024 10:07:30 11/26/1911/28/2024 ANJELICA EN AUTHO RIZAT ION written authorizatio n Commen t Anjelica en Autho rizat ion Recei moise. Autho rizat ion recei moise from [facility] for Link Reque st on 11-28 Logge d by Luis Armando Peguero an Not Available [facility] ([facility]) [address] [facility], [place], [address], 11/28/2024 10:07:31 02/23/20 24 elect rocar diogr am No observ ation record ed. [email or web address] Not Available 2023 13:04:37 12/29/1912/27/2024 CT, abdom en + pelvi s, w/ contr ast No observ ation record ed. [facility] [address], [place], [address], 12/29/2024 16:22:22 Result Notes None recorded. Problems Name Problem SNOMED Code Status Onset Date Resolution Date Notes Provider Name and Address Organization Details Recorded Time Constipat ion 30627112 Active 2023 SANDIE Apodaca [address] [place] [address], 59117[address]330 8, [employer] 10:31:37 Chest pain 01238583 Completed 202308/05/2024 SANDIE Apodaca [address] [place] [address], 66473-710 8, [employer] 10:31:27 Asthma 154839249 Active 2023 SANDIE Apodaca [address] [place] [address], 55898-986 8, [employer] 5 10:31:12 Bipolar disorder 34511303 Active 2023 SANDIE Apodaca [address] [place] [address], 43970-695 8, [employer] 10:31:10 Hyperlipi demia 44602436 Active 2023 SANDIE Apodaca [address] [place] [address], 78098-281 8, [employer] 10:31:40 Generaliz ed anxiety disorder 95577980 Active 2023 SANDIE Apodaca [address] [place] [address], 01983-137 8, [employer] 10:31:31 Vitamin D deficienc y 08900294 Active 2023 SANDIE Apodaca [address] [place] [address], 82222-770 8, [employer] 5 10:31:46 Allergic rhinitis 16441755 Active 2023 SANDIE Apodaca [address] [place] [address], 21715-285 8, [employer] 10:31:07 Essential hypertens ion 27241428 Active 2023 SANDIE Apodaca [address] [place] [address], 86987-806 8, [employer] 5 10:31:18 Seizure disorder 087881930 Active 2023 SANDIE Apodaca [address] [place] [address], 08937-741 8, [employer] 10:31:55 Nightmare s 046006786 Active 2023 SANDIE Apodaca [address] [place] [address], 89365-641 8, [employer] 10:31:35 Post-trau matic stress disorder 92035904 Active 2023 SANDIE Apodaca [address] [place] [address], 88807-864 8, [employer] 17:18:34 Fibromyal rafael 987364755 Active 2023 SANDIE Apodaca [address] [place] [address], 74037-997 8, [employer] 10:31:21 Disorder of vitamin B12 673756803 Active 2023 SANDIE Apodaca [address] [place] [address], 39881-315 8, [employer] 10:31:19 Osteoarth ritis 368258071 Active 2023 SANDIE Apodaca [address] [place] [address], 29818-411 8, [employer] 10:31:34 Gastroeso phageal reflux disease 215343354 Active 2023 SANDIE Apodaca [address] [place] [address], 97718-113 8, [employer] 10:31:23 Perforati on of left tympanic membrane 291742974319 9103 Completed 202408/05/2024 SANDIE Apodaca [address] [place] [address], 85566-214 8, [employer] 10:31:43 Acute bilateral otitis media 697074934 Completed 202408/05/2024 SANDIE Apodaca [address] [place] [address], 06883-320 8, [employer] 5 10:31:14 Seasonal allergy 682322390 Active 2024 SANDIE Apodaca [address] [place] [address], 14201-971 8, [employer] 13:12:00 Epigastri c pain 14269382 Active 2024 SANDIE Apodaca [address] [place] [address], 92063-366 8, [employer] 5 13:59:06 Weight decreased 460519912 Active 2024 SANDIE Apodaca [address] [place] [address], 78191-000 8, [employer] 14:00:54 Gastroeso phageal reflux disease without esophagit is 051223524 Active 2024 SANDIE Apodaca [address] [place] [address], 37976-112 8, [employer] 14:14:26 Problem Notes None recorded. Procedures Surgical History Date Name Laterality Status Provider Name and Address Organization Details Recorded Time Breast Biopsy completed [employer] 02/23/2024 09:21:22 Breast Surgery completed [employer] 02/23/2024 09:21:22 Colposcopy completed [employer] 02/23/2024 09:21:22 Hysterectomy completed [email or web address] 02/23/2024 09:21:22 Breast Implants completed [employer] 02/23/2024 09:21:22 Orthopedic Surgery completed [employer] 02/23/2024 09:21:22 Gallbladder Surgery completed [employer] 02/23/2024 09:21:22 Total Hysterectomy completed [employer] 02/23/2024 09:21:22 Bilateral Mastectomy completed Polina Garcia [employer]. 07/05/2024 10:56:39 Imaging Results None recorded. Procedure Notes None recorded. Medical Equipment None Reported. Allergies Allergen ID Allergen Name Allergen Category Reaction Reaction Severity Criticality Documentation Date Start Date Code Code System Note Provider Name and Address Organization Details Recorded Time 48512 acetamino phen / hydrocodo ne medicatio n Not available Not available Not available 02/23/2024 60672 2 RxNorm Emily Boone hint, [employer]. 4 09:22:18 17713 prednison e medicatio n nausea Not available Not available 07/19/2024 8640 RxNorm Polina hint, [employer]. 5 11:01:08 Medications Name Sig Start Date Stop Date Status Note LastModified by Organization Details LastModified Time Miralax 17 gram oral powder packet Take 1 packet every day by oral route as directed for 30 days, for constipat ion. 2024 active Not Available Not Available Not Avai lable atorvastati n 40 mg tablet TAKE ONE TABLET BY MOUTH AT BEDTIME active Not Available Not Available No t Available lamotrigine 150 mg tablet TAKE 1 TABLET BY MOUTH 2 TIMES A DAY active Not Available Not Available No t Available hydralazine 10 mg tablet Take 1 tablet twice a day by oral route as directed for 90 days, for high blood pressure. active Not Available Not Available No t Available clindamycin HCl 300 mg capsule TAKE 1 CAPSULE BY MOUTH THREE TIMES DAILY FOR 10 DAYS 11/25 completed Not Available Not Available Not Available prazosin 1 mg capsule TAKE 1 CAPSULE BY MOUTH ONCE A DAY 11/25 completed Not Available Not Available Not Available sucralfate 1 gram tablet TAKE ONE TABLET BY MOUTH 2 TIMES A DAY FOR GERD active Not Available Not Available No t Available prednisone 20 mg tablet TAKE 1 TABLET BY MOUTH TWICE DAILY FOR 5 DAYS 07/19 completed Not Available Not Available Not Available olanzapine 10 mg tablet TAKE 1 TABLET BY MOUTH AT BEDTIME active Not Available Not Available No t Available buspirone 30 mg tablet TAKE ONE TABLET BY MOUTH 2 TIMES A DAY 11/25 completed Not Available Not Available Not Available buspirone 10 mg tablet TAKE 1 TABLET BY MOUTH 2 TIMES A DAY active Not Available Not Available No t Available lansoprazol e 30 mg capsule,del ayed release Take 1 capsule every day by oral route as directed for 90 days, for acid reflux. 2024 active Not Available Not Available Not Avai lable diclofenac sodium 75 mg tablet,roman yed release TAKE ONE TABLET BY MOUTH 2 TIMES A DAY active Not Available Not Available No t Available hydroxyzine HCl 25 mg tablet TAKE 1 TABLET BY MOUTH 2 TIMES A DAY NEEDED FOR ANXIETY OR SLEEP active Not Available Not Available No t Available ergocalcife rol (vitamin D2) 1,250 mcg (50,000 unit) capsule TAKE ONE CAPSULE BY MOUTH ONCE WEEKLY` active Not Available Not Available No t Available azelastine 137 mcg (0.1 %) nasal spray USE 2 SPRAYS in each nostril TWICE DAILY active Not Available Not Available No t Available polyethylen e glycol 3350 17 gram/dose oral powder MIX 1 CAPFUL (17GM) IN AN 8OZ BEVERAGE AND DRINK EVERY DAY 2024 active Not Available Not Available Not Avai lable methylpredn isolone 4 mg tablets in a dose pack TAKE DIRECTED ON PACK FOR 6 DAYS 11/25 completed Not Available Not Available Not Available albuterol sulfate HFA 90 mcg/actuati on aerosol inhaler INHALE 2 PUFFS BY MOUTH EVERY 4 HOURS FOR asthma, wheezing, OR SHORTNESS OF BREATH active Not Available Not Available No t Available cefdinir 300 mg capsule Take 1 capsule every 12 hours by oral route for 10 days. 07/05 completed Not Available Not Available Not Available fluticasone propionate 50 mcg/actuati on nasal spray,suspe nsion [place] 1 spray every day by intranasa l route as directed for 90 days, for allergies . 11/25 completed Not Available Not Available Not Available prazosin 2 mg capsule Take 1 capsule every day by oral route at bedtime for 90 days. 2024 active Not Available Not Available Not Avai lable amoxicillin 875 mg-potassameeu m clavulanate 125 mg tablet TAKE 1 TABLET BY MOUTH EVERY TWELVE HOURS FOR 10 DAYS 07/19 completed Not Available Not Available Not Available buspirone 15 mg tablet 06/21 completed Not Available Not Available Not Available aripiprazol e 10 mg tablet TAKE 1 TABLET BY MOUTH AT BEDTIME active Not Available Not Available No t Available aripiprazol e 5 mg tablet TAKE ONE TABLET BY MOUTH AT BEDTIME active Not Available Not Available No t Available ciprofloxac in 0.3 %-dexametha sone 0.1 % ear drops,suspe nsion INSTILL 4 DROPS INTO AFFECTED EAR(S) BY OTIC ROUTE 2 TIMES PER DAY FOR 7 DAYS 07/05 completed Not Available Not Available Not Available bupropion HCl XL 300 mg 24 hr tablet, extended release 11/25 completed Not Available Not Available Not Available pregabalin 25 mg capsule TAKE ONE CAPSULE BY MOUTH 2 TIMES A DAY FOR NERVE PAIN active Not Available Not Available No t Available Vitamin D 07/05 completed Not Available Not Available Not Available bupropion HCl 300 mg 07/05 completed Not Available Not Available Not Available Vitamin B12 5000 mcg 07/05 completed Not Available Not Available Not Available levocetiriz ine 5 mg tablet TAKE 1 TABLET BY MOUTH ONCE A DAY 2024 active Not Available Not Available Not Avai lable lamotrigine 200 mg disintegrat ing tablet Place 1 tablet every day by transling ual route. 07/05 completed Not Available Not Available Not Available lamotrigine ER 200 mg tablet,exte nded release 24 hr TAKE ONE TABLET BY MOUTH ONCE A DAY 11/25 completed Not Available Not Available Not Available Vitamin B-12 5,000 mcg sublingual tablet DISSOLVE 1 TABLET UNDER THE TONGUE ONCE A DAY 2024 active Not Available Not Available Not Avai lable albuterol sulfate 90 mcg/actuati on breath activated powder inhaler Inhale 2 puffs every 4 hours by inhalatio n route as directed for 90 days, for asthma/wh eezing/sh ortness of breath. 2024 active Not Available Not Available Not Avai lable fluticasone prop.50 mcg spray,suspe n-sod.chlor eduardo 0.9% nasal spray kit Take by nasal route. 07/05 completed Not Available Not Available Not Available Trintellix 10 mg tablet TAKE 1 TABLET BY MOUTH ONCE A DAY 11/25 completed Not Available Not Available Not Available Trintellix 20 mg tablet TAKE 1 TABLET BY MOUTH ONCE A DAY 11/25 completed Not Available Not Available Not Available Voquezna 20 mg tablet TAKE 1 TABLET BY MOUTH ONCE A DAY active Not Available Not Available No t Available Vitals Date Recorded Body height Body mass index (BMI) Body weight Body temperature Heart rate Oxygen saturation Systolic And Diastolic Provider Name and Address Organization Details Last Updated DateTime 5 172.72 cm 25 kg/m2 77987.9 5 g 98.2 [degF] 79 /min 95 % 122/80 mm[Hg] Zaira Bueno [employer] 5 08:34:25 Date Recorded Body height Body mass index (BMI) Body weight Body temperature Heart rate Oxygen saturation Systolic And Diastolic Provider Name and Address Organization Details Last Updated DateTime 5 172.72 cm 25.1 kg/m2 11151.1 8 g 98.2 [degF] 72 /min 98 % 130/84 mm[Hg] [employer] 5 10:53:52 Date Recorded Body height Body mass index (BMI) Body weight Body temperature Heart rate Oxygen saturation Systolic And Diastolic Provider Name and Address Organization Details Last Updated DateTime 5 172.72 cm 25.1 kg/m2 78709.1 8 g 97.6 [degF] 80 /min 98 % 108/76 mm[Hg] [employer] 5 11:00:41 Date Recorded Body height Body mass index (BMI) Body weight Body temperature Heart rate Oxygen saturation Systolic And Diastolic Systolic And Diastolic Provider Name and Address Organization Details Last Updated DateTime 5 172.72 cm 21.9 kg/m2 16827 g 98.4 [degF] 92 /min 97 % 158/92 mm[Hg] 127/84 mm[Hg] Jyoti Goldstein [employer] 5 13:38:38 Date Recorded Body height Body mass index (BMI) Body weight Heart rate Oxygen saturation Systolic And Diastolic Provider Name and Address Organization Details Last Updated DateTime 4 172.72 cm 26.2 kg/m2 97331.5 9 g 84 /min 96 % 129/83 mm[Hg] Emily Boone [employer] 4 09:34:15 Social History Question Answer Notes LastModified by Organizat ion Details LastModified Time Tobacco Smoking Status Current Every Day Smoker Emily richmond [facility] [employer] 02/23/2024 09:21:21 Do You Have An Advance Directive? No [email or web address] Information not available 02/23/2024 Is Your Home Air Conditioned? Yes [email or web address] Information not available 02/23/2024 If You Are , What Was Your Level Of Alcohol Consumption Prior To ? None [email or web address] Information not available 02/23/2024 Do You Wear A Helmet When Biking? No [email or web address] Information not available 02/23/2024 Are You Blind Or Do You Have Difficulty Seeing? No [email or web address] Information not available 02/23/2024 What Is Your Level Of Caffeine Consumption? Occasional [email or web address] Information not available 02/23/2024 What Type Of Covered Button Maker Do You Use? None [email or web address] Information not available 02/23/2024 Have You Been To An Area Known To Be High Risk For COVID-19? No Information not available 07/05/2024 Are You Deaf Or Do You Have Serious Difficulty Hearing? No Information not available 02/23/2024 What Type Of Diet Are You Following? REGULAR Information not available 02/23/2024 Have There Been Any Changes To Your Family Or Social Situation? No [email or web address] Information no t available 02/23/2024 Are There Any Guns Present In Your Home? No Information not available 02/23/2024 Which Of Your Hands Is Dominant? Right [email or web address] Information not available 02/23/2024 What Is Your Home Situation? Relatives Information not available 02/23/2024 Do You Have A Medical Power Of Clinical Massage Therapist? No Information not available 02/23/2024 What Was The Date Of Your Most Recent Tobacco Screening? 11/25/2024 Information not available 11/25/2024 Do You Have Any Pets? No Information not available 02/23/2024 What Is Your Relationship Status? Information not available 02/23/2024 Have You Repeated Any Grades? Yes Information not available 02/23/2024 Do You Use Your Seat Belt Or Car Seat Routinely? Yes [email or web address] Information not available 02/23/2024 Are You Sexually Active? No [email or web address] Information not available 02/23/2024 Do You Have Any Siblings? Yes Information not available 02/23/2024 Do You Have Smoke And Carbon Monoxide Detectors In Your Home? Yes [email or web address] Information not available 02/23/2024 At What Age Did You Start Smoking Tobacco? 20 [email or web address] Information not available 02/23/2024 Are You Passively Exposed To Smoke? Yes [email or web address] Information no t available 02/23/2024 Are There Any Smokers In Your House? Yes [email or web address] Information not available 02/23/2024 How Much Tobacco Do You Smoke? 0.25 PPD Information not available 07/19/2024 Do You Participate In Social Media? Yes Information not available 07/05/2024 Do You Use Sunscreen Routinely? No [email or web address] Information not available 02/23/2024 Has Tobacco Cessation Counseling Been Provided? Yes [email or web address] Information not available 02/23/2024 On What Date Was Tobacco Cessation Counseling Provided? 11/25/2024 Information not available 11/25/2024 How Many Years Have You Smoked Tobacco? 33 [email or web address] Information not available 02/23/2024 Have You Recently Traveled Abroad? No Information not available 07/05/2024 Do You Have Difficulty Walking Or Climbing Stairs? No [email or web address] Information not available 02/23/2024 Are You Currently In School? No Information not available 07/05/2024 Do You Have Any Dietary Restrictions? No Information not available 07/05/2024 Sex: Female Functional Status Question Answer Note LastModified by Organizat ion Details LastModified Time Do you use any illicit or recreational drugs? No Information not available 02/23/2024 Do you or have you ever used any other forms of tobacco or nicotine? Yes [email or web address] Information not available 06/21/2024 What is your level of alcohol consumption? None Information not available 02/23/2024 Do you or have you ever used smokeless tobacco? Never used [email or web address] tobacco Information not available 07/19/2024 Are you currently employed? No [email or web address] Information not available 02/23/2024 Do you have transportation difficulties? No Information not available 07/05/2024 Are you able to walk independently without assistance or assistive devices? YESWOREST [email or web address] Information not available 02/23/2024 Do you have difficulty doing errands alone? No [email or web address] Information not available 02/23/2024 Are you able to care for yourself independently? Yes [email or web address] Information not available 02/23/2024 Do you have difficulty dressing, bathing, grooming, or toileting? No [email or web address] Information not available 02/23/2024 Do you or have you ever used e-cigarettes or vape? Former user of electronic cigarettes Information not available 07/19/2024 What is your exercise level? None [email or web address] Information not available 02/23/2024 Mental Status Question Answer Note LastModified by Organizat ion Details LastModified Time Do you feel stressed (tense, restless, nervous, or anxious, or unable to sleep at night)? HL5960-4 Information not available 07/05/2024 Do you have difficulty concentrating, remembering or making decisions? Yes [email or web address] Information no t available 02/23/2024 Are you or have you been involved with bullying? Yes [email or web address] Information not available 02/23/2024 Family History Relationship Description Onset Age of this Age Resolved Age Notes LastModified by Organization Details LastModified Time Brother Harmful pattern of use of alcohol [email or web address] Not available 2023 09:21:20 Brother Anxiety disorder [email or web address] Not available 2023 09:21:20 Brother Depressive disorder [email or web address] Not available 2023 09:21:20 Father Hypercholest erolemia Not available 2023 09:21:20 Father Harmful pattern of use of alcohol [email or web address] Not available 2023 09:21:20 Father Hypertensive disorder [email or web address] Not available 2023 09:21:20 Father Heart disease Not available 2023 09:21:20 Mother Malignant neoplasm of breast [email or web address] Not available 2023 09:21:20 Unspecified Relation Malignant neoplasm of breast [email or web address] Not available 2023 09:21:20 Unspecified Relation Depressive disorder [email or web address] Not available 2023 09:21:20 Unspecified Relation Malignant neoplasm of cervix uteri [email or web address] Not available 09:21:20 Unspecified Relation Malignant neoplasm of lung [email or web address] Not available 2023 09:21:20 Unspecified Relation Malignant neoplasm of colon [email or web address] Not available 2023 09:21:20 Unspecified Relation Malignant neoplasm of ovary [email or web address] Not available 2023 09:21:21 Unspecified Relation Malignant neoplasm of uterus [email or web address] Not available 2023 09:21:21 Unspecified Relation Seizure [email or web address] Not available 024 09:21:21 Maternal Grandmother Arthritis [email or web address] Not available 09:21:21 Sister Harmful pattern of use of alcohol [email or web address] Not available 2023 09:21:21 Maternal Grandfather Harmful pattern of use of alcohol [email or web address] Not available 2023 09:21:21 Paternal Grandfather Harmful pattern of use of alcohol [email or web address] Not available 2023 09:21:21 Medical History Condition Response Anxiety Disorder Y Vision or Eye Problems Y Arthritis Y Breast Cancer Y Hospitalizations N Acid Reflux (GERD) Y Cancer Y Emergency room visit since last appointm ent. N Depression Y Asthma Y ADD/ADHD Y High Cholesterol Y Headaches Y Hypertension Y Gynecological History Statement/Question Response Menses Monthly N HPV Vaccine N Date of Last Pap Smear Current Control Method Hysterectom y Most Recent Mammogram Age at First Child 29 Obstetrics History GPAL:G 2 P 2 0 0 2 Type Value Multiple Births 0 Full Term 2 Induced 0 Spontaneous 0 Premature 0 Living 2 Ectopics 0 Total 2 Immunizations Vaccine Type Date Status Note Provider Nam e and Address Organization Details Recorded Time Influenza, split virus, trivalent, preservative 7 completed Not Available [facility] 11/25/2024 13:24:08 tetanus toxoid, adsorbed 8 completed Not Available [facility] 11/25/2024 13:24:08 Influenza, split virus, quadrivalent, PF 8 completed Not Available [facility] 11/25/2024 13:24:08 Past Encounters Encounter ID Performer Location Encounter Start Date Encounter Closed Date Diagnosis/Indication Diagnosis SNOMED-CT Code Diagnosis ICD10 Code Diagnosis IMO Codes Diagnosis Note [id number] [facility], [address] [address] 02/23/2024 09:13:47 02/23/2024 10:20:23 Chest pain 00269484 R07.9 History of polyp of colon 387823559 Z86.0100 Body mass index 25-29 - overweight 342276547 Z68.26 [id number] SANDIE Apodaca [address] [address] 06/21/2024 08:22:36 06/21/2024 08:43:52 Perforation of left tympanic membrane 4807657212 357153 H72.92 RTC if not improving [id number] SANDIE Apodaca [address] [address] 07/05/2024 10:34:37 07/05/2024 11:22:15 Acute bilateral otitis media 605914514 H66.93 [id number] Daysi Michael [address] [address] 07/19/2024 10:42:45 07/19/2024 11:15:38 Acute bilateral otitis media 151487749 H66.93 [id number] Daysi Michael [address] [address] 11/25/2024 13:23:18 11/25/2024 14:11:06 Epigastric pain 90601099 R10.13 07410 Weight decreased 8117855 01 R63.4 82154 Personal h istory of primary malignant neoplasm of breast 583914588 Z85.3 [id number] Gastroesop hageal reflux disease without esophagitis 775869231 K21.9 357429 Health Concerns Section Related Observation LastModified by Organization Detai ls LastModified Time None Recorded Concern Status LastModified by Organization Details LastModified Time None Recorded Advance Directives Directive N: Payers Insurance Date Sequence Insurance Name Policy Number Policy Goodman Covered Member ID Goodman Member ID Guarantor Name 11/30/2024 1 [employer] [facility] [place] (MEDICAID HMO) Tiana Boone [id number] Tiana Boone Notes Date Note Type Note Provider Name and Address Organization Details Recorded Time 02/23/2024 text/html Patient presents to establish care.Has had intermittent chest pain. Hurts in epigastric region, radiates down left arm. Occurs sporadically and only lasts a few seconds at a time. Can occur at rest or with exertion. Happens a few times a week for the past month or so.Also due for colonoscopy. Has history of colon polyps. SANDIE Apodaca [address] [place], [address], [employer] 02/23/2024 13:16:03 06/21/2024 text/html ROS as noted in the HPI Left ear pain X 3 days. No draining and bleeding. No fever. SANDIE Apodaca [address] [place], [address], [employer] 06/21/2024 09:43:30 07/05/2024 text/html ROS as noted in the HPI Still having left ear pain, though drainage has stopped. Now right ear hurts also.Finished cefdinir and ciprodex. SANDIE Apodaca [address] [place], [address], [employer] 07/05/2024 11:35:04 07/19/2024 text/html ROS as noted in the HPI Patient still having bilateral ear pain despite several rounds of antibiotics. Has taken Augmentin, Cefdinir and used Ciprodex following perforation. Using Flonase. Could not tolerate steroids. SANDIE Apodaca [address] [place], [address], [employer] 07/19/2024 11:25:42 11/25/2024 text/html ROS as noted in the HPI Patient presents for followup. She is having pain in LUQ/left rib area. Has been ongoing for several months. Sometimes it hurts so bad that it doubles her over. Pain radiates upwards into her chest. She has lost weight because she doesn't want to eat. She also feels as if she is having trouble passing stool. Has had a rectal polyp in the past. History of breast cancer. SANDIE Apodaca [address] [place] [address], [phone], [place] [facility] [employer] 11/28/2024 12:54:28 OBGyn Episode No OBEpisode recorded.
--- NOTE | 2025-03-11 15:55 | XR_ITS ---
PROCEDURE INFORMATION: Exam: XR Left Humerus Exam date and time: 03/11/2025 4:30 PM Age: 54 years old Clinical indication: Pain; Upper arm and shoulder; Additional info: Fall, pain left shoulder and humerus TECHNIQUE: Imaging protocol: Radiologic exam of the left humerus. Views: 2 or more views. COMPARISON: CR XR SHOULDER LT MIN 2V 03/11/2025 4:30 PM FINDINGS: Bones/joints: No acute fracture or dislocation. Soft tissues: Clips and tissue certified nurses aide project at the left chest. IMPRESSION: No acute fracture or dislocation.
--- NOTE | 2025-03-11 15:55 | XR_ITS ---
PROCEDURE INFORMATION: Exam: XR Left Shoulder Exam date and time: 03/11/2025 4:30 PM Age: 54 years old Clinical indication: Injury or trauma; Fall; Other: Fell down stairs; Additional info: Fall, left shoulder injury TECHNIQUE: Imaging protocol: Radiologic exam of the left shoulder. Views: 2 or more views. COMPARISON: CR XR HUMERUS LT 03/11/2025 4:30 PM FINDINGS: Bones/joints: No acute fracture or dislocation. Soft tissues: Clips and tissue chart computer project at the left chest. IMPRESSION: No acute fracture or dislocation.
--- NOTE | 2025-03-11 16:00 | HMH.EDGENADL ---
Discharge Plan Disposition Patient Disposition: Home, Self-Care Prescriptions Prescriptions: New lidocaine 5 % adhesive patch,medicated See Rx Instructions .ROUTE .COMPLEX Qty: 15 0RF Rx Instructions: leave on most painful area for up to 12 hrs No Action doxepin 75 mg capsule 75 mg PO QHS Qty: 90 1RF ranitidine HCl 150 mg capsule 150 mg PO BID Qty: 180 1RF prazosin 1 mg capsule 1 mg PO HS citalopram [Celexa] 10 mg tablet 10 mg PO DAILY Patient Comments: Take 1 tablet once a day lamotrigine 200 mg tablet extended release 24hr 150 mg PO BID Patient Comments: TAKE ONE TABLET BY MOUTH ONCE DAILY azelastine 137 mcg (0.1 %) spray,non-aerosol 2 spray intranasal BID Qty: 30 2RF Rx Instructions: administer into each nostril cyanocobalamin (vitamin B-12) 5,000 mcg capsule 5,000 mcg PO DAILY Qty: 90 3RF ergocalciferol (vitamin D2) [Vitamin D2] 1,250 mcg (50,000 unit) capsule See Rx Instructions .ROUTE .COMPLEX Qty: 14 3RF Dose Instruction: TAKE ONE CAPSULE BY MOUTH WEEKLY Rx Instructions: TAKE ONE CAPSULE BY MOUTH WEEKLY lansoprazole 30 mg capsule,delayed release(DR/EC) See Rx Instructions .ROUTE .COMPLEX Qty: 90 3RF Dose Instruction: TAKE ONE CAPSULE BY MOUTH EVERY DAY Rx Instructions: TAKE ONE CAPSULE BY MOUTH EVERY DAY cholecalciferol (vitamin D3) [Vitamin D3] 25 mcg (1,000 unit) capsule See Rx Instructions .ROUTE .COMPLEX Qty: 90 3RF Dose Instruction: TAKE ONE CAPSULE BY MOUTH DAILY Rx Instructions: TAKE ONE CAPSULE BY MOUTH DAILY loratadine 10 mg tablet See Rx Instructions .ROUTE .COMPLEX Qty: 90 1RF Dose Instruction: TAKE ONE TABLET BY MOUTH EVERY DAY Rx Instructions: TAKE ONE TABLET BY MOUTH EVERY DAY diclofenac sodium 75 mg tablet,delayed release (DR/EC) See Rx Instructions .ROUTE .COMPLEX Qty: 60 2RF Dose Instruction: TAKE ONE TABLET BY MOUTH TWICE DAILY Rx Instructions: TAKE ONE TABLET BY MOUTH TWICE DAILY polyethylene glycol 3350 17 gram/dose powder See Rx Instructions .ROUTE .COMPLEX Qty: 510 0RF Dose Instruction: DISSOLVE ONE capful in EIGHT OUNCEs of liquid AND drink daily Rx Instructions: DISSOLVE ONE capful in EIGHT OUNCEs of liquid AND drink daily albuterol sulfate [Ventolin HFA] 90 mcg/actuation HFA aerosol inhaler See Rx Instructions .ROUTE .COMPLEX Qty: 18 2RF Dose Instruction: USE 2 PUFF inhalation EVERY 6 HOURS administer with spacer Rx Instructions: USE 2 PUFF inhalation EVERY 6 HOURS administer with spacer fluticasone propionate 50 mcg/actuation spray,suspension See Rx Instructions .ROUTE .COMPLEX Qty: 16 5RF Dose Instruction: USE 1 SPRAY IN EACH NOSTRIL DAILY Rx Instructions: USE 1 SPRAY IN EACH NOSTRIL DAILY sucralfate 1 gram tablet See Rx Instructions .ROUTE .COMPLEX Qty: 180 1RF Dose Instruction: TAKE ONE TABLET BY MOUTH TWICE DAILY Rx Instructions: TAKE ONE TABLET BY MOUTH TWICE DAILY atorvastatin 40 mg tablet See Rx Instructions .ROUTE .COMPLEX Qty: 90 3RF Dose Instruction: TAKE ONE TABLET BY MOUTH DAILY Rx Instructions: TAKE ONE TABLET BY MOUTH DAILY sodium,potassium,mag sulfates [Suprep Bowel Prep Kit] 17.5-3.13-1.6 gram recon soln See Rx Instructions PO .COMPLEX Qty: 354 0RF Rx Instructions: DILUTE; drink full amount early evening before AND next morning at least 4-5 hr before procedure; follow w 960 mL water PO olanzapine 10 mg Tablet 10 mg PO HS hydroxyzine HCl 25 mg Tablet 25 mg PO BID pregabalin [Lyrica] 25 mg capsule 25 mg PO BID buspirone 10 mg tablet 10 mg PO BID Qty: 60 12RF Rx Instructions: Please take 1 tablet by mouth twice daily Referrals Follow up/Referrals: Daysi Michael PA [Primary Care Provider, Medical] - See instructions Robert Edwards DO [Staff Physician, Orthopedics] - See instructions Activity Restrictions/Add. Instructions Additional Instructions/Restrictions: Your x-rays did not show any dislocations or fractures. You likely have soft tissue bruising that should improve over time. Wear the sling for comfort but be sure to move the shoulder is much as possible over the next several days to prevent frozen shoulder from developing. I am giving you a referral to Dr. Edwards with the orthopedic team. If symptoms do not improve over the next week, give their office a call to schedule follow-up appointment. You can take Tylenol and ibuprofen to help with your pain. I am also prescribing lidocaine patches to help with your symptoms. If you develop any new or worsening symptoms, or if you become concerned for your help for any reason, return to the emergency department for evaluation Clinical Impressions Clinical Impression: Acute pain of left shoulder, Fall Print Language Print Language: Gren[place] Discharge ED Provider: Ray Lucero Adult HPI General Chief complaint: Extremity Injury, Upper Stated complaint: AO 03/11 fell on Left arm pain Time Seen by Provider: 03/11/25 15:45 History of Present Illness HPI narrative: Tiana Boone is a 54y female with a history of bipolar disorder, schizoaffective disorder, COPD, hypertension who presents to the emergency department with left shoulder pain after a fall. Patient states that she was walking down a hill and slipped in the mud. She states that she landed on her left shoulder. This occurred approximately 1 hour prior to arrival. She did not hit her head or lose consciousness. She states that she is having pain on the lateral aspect of her left shoulder and cannot move her arm due to the pain. She denies any numbness or tingling. She states that the pain sometimes shoots down her left bicep area. She has not taken anything for pain prior to arrival. Related Data Home Medications ?Medication ?Instructions ?Recorded ?Confirmed prazosin 1 mg capsule 1 mg PO HS 06/13/21 01/10/25 citalopram 10 mg tablet (Celexa) 10 mg PO DAILY 08/19/21 01/10/25 lamotrigine 200 mg tablet,extended 150 mg PO BID 08/20/23 01/10/25 release 24 hr hydroxyzine HCl 25 mg tablet 25 mg PO BID 01/10/25 01/10/25 olanzapine 10 mg tablet 10 mg PO HS 01/10/25 01/10/25 pregabalin 25 mg capsule (Lyrica) 25 mg PO BID 01/10/25 01/10/25 Previous Rx's ?Medication ?Instructions ?Recorded doxepin 75 mg capsule 75 mg PO QHS #90 caps 11/22/18 ranitidine HCl 150 mg capsule 150 mg PO BID #180 caps 11/22/18 lansoprazole 30 mg capsule,delayed See Rx Instructions .Route 11/21/22 release .COMPLEX #90 caps cholecalciferol (vitamin D3) 25 See Rx Instructions .Route 04/10/23 mcg (1,000 unit) capsule (Vitamin .COMPLEX #90 caps D3) loratadine 10 mg tablet See Rx Instructions .Route 06/09/23 .COMPLEX #90 tabs diclofenac sodium 75 mg See Rx Instructions .Route 08/27/23 tablet,delayed release .COMPLEX #60 tabs polyethylene glycol 3350 17 See Rx Instructions .Route 09/04/23 gram/dose oral powder .COMPLEX #510 grams albuterol sulfate 90 mcg/actuation See Rx Instructions .Route 10/06/23 aerosol inhaler (Ventolin HFA) .COMPLEX #18 grams fluticasone propionate 50 See Rx Instructions .Route 10/06/23 mcg/actuation nasal .COMPLEX #16 grams spray,suspension sucralfate 1 gram tablet See Rx Instructions .Route 10/06/23 .COMPLEX #180 tabs atorvastatin 40 mg tablet See Rx Instructions .Route 10/27/23 .COMPLEX #90 tabs cyanocobalamin (vitamin B-12) 5,000 mcg PO DAILY #90 caps 11/24/23 5,000 mcg capsule ergocalciferol (vitamin D2) 1,250 See Rx Instructions .Route 11/24/23 mcg (50,000 unit) capsule (Vitamin .COMPLEX #14 caps D2) azelastine 137 mcg (0.1 %) nasal 2 spray intranasal BID #30 mL 08/02/24 spray sodium,potassium,mag sulfates 17.5 See Rx Instructions PO .COMPLEX 12/29/24 gram-3.13 gram-1.6 gram oral soln #354 mL (Suprep Bowel Prep Kit) buspirone 10 mg tablet 10 mg PO BID #60 tabs 01/12/25 lidocaine 5 % topical patch See Rx Instructions topical 03/11/25 .COMPLEX #15 ea Allergies Allergy/AdvReac Type Severity Reaction Status Date / Time hydrocodone (From LORTAB) Allergy Unknown Other Verified 01/12/25 11:01 amoxicillin (From Augmentin) AdvReac Intermediate Abdominal Verified 01/12/25 11:01 Pain clavulanic acid (From AdvReac Intermediate Abdominal Verified 01/12/25 11:01 Augmentin) Pain cefdinir AdvReac Vomiting Verified 01/12/25 11:01 [facility] Disclaimer: The information contained in this section may have been updated after the patient was seen, as this information can be updated by other users. Medical History (Updated 03/11/25 @ 16:50 by Ray Lucero MD) Giant gastric ulcer Hiatal hernia Tympanosclerosis, bilateral Eustachian tube dysfunction Abnormal electrocardiogram [ECG] [EKG] Bilateral otitis media Bipolar disorder Pseudotumor cerebri Ganglion cyst Breast cancer GERD (gastroesophageal reflux disease) Hyperlipidemia Hypertension COPD (chronic obstructive pulmonary disease) Asthma Depression Schizoaffective disorder Bipolar disorder Surgical History H/O excision of ganglion cyst S/P colonoscopic polypectomy History of sinus surgery Hx of appendectomy H/O: hysterectomy Family History Other Asthma Bipolar disorder Breast cancer COPD (chronic obstructive pulmonary disease) Depression GERD (gastroesophageal reflux disease) Heart disease Hyperlipidemia Hypertension Schizoaffective disorder Social History Smoking Status: Current every day smoker tobacco type: cigarettes packs per day: 1 second hand exposure: No alcohol intake: never substance use type: denies use current occupational status: employed Travel in the last 8 weeks?: None household members: family housing: house Have you lived/traveled outside [place] in past 30 days?: No Contact w/someone who lives/traveled outside [place] past 30 days?: No Exposure to someone with infectious disease in past 14 days?: No Do you have a fever (greater than 100.4 F or 38 C)?: No Have you tested positive for COVID-19?: No Exposed to someone with COVID-19 in past 14 days?: No Do you have a sore throat?: No Do you have a cough?: No Do you have any weakness?: No Do you have any diarrhea?: No Are you experiencing any unusual bleeding?: No Do you have any muscle aches/pain?: No Do you have any abdominal pain?: No Are you experiencing loss of taste or smell?: No Other Medical History Have you received the Flu Vaccine for this season: No Have you received the Pneumonia Vaccine: No ROS Obtained: Yes Systems reviewed as appropriate & no additional complaints except as documented Physical Exam General General appearance: alert and in no apparent distress Head Head exam: atraumatic Eye Eye exam: Present normal appearance ENT ENT exam: Present normal external ear exam Neck Neck exam: Present full ROM Chest Chest inspection: Present symmetric chest wall rise Respiratory Respiratory exam: Present normal lung sounds bilaterally; Absent respiratory distress Cardiovascular Cardiovascular exam: Present regular rate and normal rhythm Abdominal Exam Abdominal exam: Present soft; Absent tenderness or guarding Extremities Exam Extremities exam: Present normal inspection Expanded Upper Extremity Exam Left: Comment: LUE: Tenderness to palpation over the left lateral shoulder without obvious deformity. Mild tenderness over the AC joint without deformity or swelling. No significant tenderness over the humerus, elbow, forearm, wrist or hand. [employer] [place] strength is 5 out of 5. Lumbricals intact. Thumb opposition intact. 2+ radial pulse. Full range of motion of the elbow. Limited range of motion at the shoulder secondary to pain. Can abduct elbow to 90 degrees with passive range of motion but has pain at 90 degrees. Back Exam Back exam: Present normal inspection Neurological Exam Neurological exam: Present alert and oriented X3 Psychiatric Psychiatric exam: Present normal affect Skin Skin exam: Present warm and dry Medical Decision Making Medical Records Screening: Per USPSTF and CDC recommendations, given the prevalence of disease in our region, it is our hospital?s policy to screen for HIV and viral Hepatitis for all patients aged 18 and over and those with ongoing risk factors. Jesus Inquiry Pt receiving controlled substance: No Vital Signs: 03/11/25 15:44 03/11/25 15:44 03/11/25 15:47 Temperature 98.4 F 98.4 F Temperature Source Oral Oral Pulse Rate 88 84 Pulse Rate [Right] 88 Respiratory Rate 18 18 Blood Pressure 164/93 H 164/93 H Blood Pressure [Right Arm] 164/93 H Blood Pressure Mean [Right Arm] 116 Blood Pressure Source Automatic Cuff Blood Pressure Source [Right Arm] Automatic Cuff Blood Pressure Position Supine Blood Pressure Position [Right Arm] Supine 02 Sat by Pulse Oximetry 99 99 100 Oxygen Delivery Method Room Air Room Air 03/11/25 16:30 Temperature Temperature Source Pulse Rate 66 Pulse Rate [Right] Respiratory Rate Blood Pressure Blood Pressure [Right Arm] Blood Pressure Mean [Right Arm] Blood Pressure Source Blood Pressure Source [Right Arm] Blood Pressure Position Blood Pressure Position [Right Arm] 02 Sat by Pulse Oximetry 100 Oxygen Delivery Method Orders (Tests/Meds): ED MEDICATIONS Discontinued Medications Generic Name Dose Route Start Last Admin Trade Name Freq PRN Reason Stop Dose Admin Acetaminophen 1,000 mg 03/11/25 15:59 03/11/25 16:16 Acetaminophen 500mg Tab PO 03/11/25 16:00 1,000 mg ONCE ONE Administration Ibuprofen 600 mg 03/11/25 15:59 03/11/25 16:16 Ibuprofen 600 Mg Tablet PO 03/11/25 16:00 600 mg ONCE ONE Administration Lidocaine 1 each 03/11/25 15:59 03/11/25 16:16 Lidocaine 5% Transdermal Patch TD 03/11/25 16:00 1 each ONCE ONE Administration ORDERS Category Date Time Status Humerus XR left [XR humerus LT] Stat Exams 03/11/25 15:55 Completed Shoulder XR left minimum 2 views [XR shoulder LT min 2V Exams 03/11/25 15:55 Completed ] Stat HIV Combo Stat Lab 03/11/25 16:04 Ordered Hepatitis C Ab Qual. W/ RFX Stat Lab 03/11/25 16:04 Ordered Medical Decision Narrative: Tiana Boone is a 54y female with a history of bipolar disorder, schizoaffective disorder, COPD, hypertension who presents to the emergency department with left shoulder pain after a fall. Patient states that she was walking down a hill and slipped in the mud. She states that she landed on her left shoulder. This occurred approximately 1 hour prior to arrival. She did not hit her head or lose consciousness. She states that she is having pain on the lateral aspect of her left shoulder and cannot move her arm due to the pain. She denies any numbness or tingling. She states that the pain sometimes shoots down her left bicep area. She has not taken anything for pain prior to arrival. On arrival, patient is hemodynamically stable, no acute distress, breathing comfortably on room air. Physical exam, as stated above, shows tenderness over the lateral aspect of the left shoulder and AC joint without deformity or swelling. Limited range of motion at the shoulder secondary to pain. She can abduct the shoulder to 90 degrees with passive range of motion but has pain beyond this. Full range of motion at the elbow. No tenderness distal to the shoulder. 2+ radial pulse. Lumbricals intact. Thumb opposition intact. Differential diagnosis includes, but is not limited to: Shoulder fracture, dislocation, AC joint separation, humerus fracture, soft tissue injury, ligamentous injury, among others. The most morbid conditions were considered and workup was based on these. Will obtain left shoulder and left humerus x-rays. Will also administer Tylenol and ibuprofen and lidocaine patch for symptomatic relief. X-ray imaging interpreted by me personally. No acute fracture or dislocation. No AC joint separation. See final radiology report for details On reassessment, patient remains in stable condition. I do feel that her symptomatology is most likely soft tissue in nature and will improve over time, however will provide sling and give orthopedic follow-up if symptoms do not improve. Is possible that she has a rotator cuff injury if there is no improvement in her symptoms. Recommended conservative treatment with Tylenol, ibuprofen ice packs and heating pads. Encouraged her to continue moving the shoulder is much as she can tolerate to ensure that she does not develop frozen shoulder. All questions were answered. She demonstrated understanding and was in agreement this plan. She was then discharged from the emergency department in stable condition. Critical Care Critical Care Time Critical Care Time: No
[2025-03-11] MEDS: LIDOCAINE 5% TRANSDERMAL PATCH 1 EACH TD (16:16)
[2025-03-11] MEDS: IBUPROFEN 600 MG TABLET PO (16:16)
[2025-03-11] MEDS: ACETAMINOPHEN 500MG TAB 1000 MG PO (16:16)
[2025-03-11 16:30] VITALS: PULSE 66; O2SAT 100
[2025-03-11 17:33] VITALS: BP 150/93; PULSE 74; RESP 18; TEMP 37.1; O2SAT 98
== END 2025-03-11 17:42 | disposition home or self-care (01) ==
PROVIDERS: Emergency Provider Student in an Organized Health Care Education/Training Program; PCP Physician Assistant
DX: M25.512 Pain in left shoulder (principal); W01.10XA Fall on same level from slipping, tripping and stumbling with subsequent striking against unspecified object, initial encounter
CPT/HCPCS: 73030; 73060; 99283; 99285